=== PATIENT | female | born 1955 | race Caucasian/White ===

== ENCOUNTER 2017-07-06 15:52 | Emergency (ER) | payer OTHER ==
[~2017-07-06] VITALS: Ht 160 cm; Wt 124.7 kg
[~2017-07-06 15:52] MED LIST: ASPIRIN ADULT L81 M1 PO; CARDIZEM CD240 MG PO; CIPRO250 MG PO; LOPRESSOR50 MG PO; METFORMIN500 MG PO; MULTI VITAMINS1 TAB PO; NORVASC10 MG PO; PRADAXA150 MG PO; TRILEPTAL600 MG PO; VICODIN 5-3001 EACH PO; ZESTRIL,PRINIVI10 MG PO
== END 2017-07-06 18:20 | disposition home or self-care (01) ==
LOC: ED 15:52
DX: S13.9XXA Sprain of joints and ligaments of unspecified parts of neck, initial encounter (principal); Y93.89 Activity, other specified; Y92.89 Other specified places as the place of occurrence of the external cause; Y99.8 Other external cause status; V89.2XXA Person injured in unspecified motor-vehicle accident, traffic, initial encounter; I10 Essential (primary) hypertension

== ENCOUNTER → 2018-02-22 | Outpatient (CLI) | payer OTHER ==
[2018-02-23 10:06] LABS: HEPATITIS B SURFACE AG Negative (Negative); HEPATITIS C VIRUS ANTIBODY <0.1 s/co (0.0-0.9)
== END | disposition home or self-care (01) ==
LOC: LAB 00:17 → US 09:00
PROVIDERS: Internal Medicine
DX: K76.0 Fatty (change of) liver, not elsewhere classified (principal); K82.9 Disease of gallbladder, unspecified

== ENCOUNTER → 2018-09-25 | Outpatient (CLI) | payer OTHER | END | disposition home or self-care (01) | LOC: MAMMO 08:00 | DX: Z12.31 Encounter for screening mammogram for malignant neoplasm of breast (principal) ==

== ENCOUNTER → 2019-05-20 | Outpatient (CLI) | payer OTHER | END | disposition home or self-care (01) | LOC: US 09:29 | DX: K76.0 Fatty (change of) liver, not elsewhere classified (principal) ==

== ENCOUNTER 2019-08-17 15:43 | Inpatient (IN) | payer OTHER ==
[~2019-08-17] VITALS: Ht 157.5 cm; Wt 120.3 kg
[~2019-08-17 15:43] MED LIST changes: -ZESTRIL,PRINIVI10 MG PO; +ZESTRIL20 MG PO
[2019-08-17] MEDS ORDERED: DILTIAZEM 24HR360 MG PO (15:57)
[2019-08-17] MEDS ORDERED: LASIX40 MG PO (15:57)
[2019-08-17 16:00] VITALS: BP 137/77
[2019-08-17] MEDS ORDERED: KLOR-CON 1010 ME1 PO (16:00)
--- NOTE | 2019-08-17 16:00 | NUR ---
A 64, admitted to , under the services of JESSICA Rob MD with a diagnosis of AF W/ RVR. Chief complaint is DIRECT ADMIT FROM OFFICE. Patient arrived via from [place]. Monitor applied. Initial assessment completed. Vital signs taken and recorded. JESSICA ROB MD notified of admission to the unit. Orders received. See assessment for past medical history, medications and allergies. Patient and/or family oriented to unit. [facility] visitation policy reviewed. Clothing/patient valuable form completed. MARSHAL GUERRERO
[2019-08-17] MEDS ORDERED: LIPITOR10 MG PO (16:03)
[2019-08-17] MEDS ORDERED: VITAMIN D-32000 UNI1 PO (16:03)
--- NOTE | 2019-08-17 16:54 | NUR ---
NEW IV STARTED IN LEFT AC 22 VENUS ON FIRST ATTEMPT, GOOD BLOOD RETURN AND FLUSHED WITHOUT DIFFICULTY, NEW IV STARTED IN RIGHT FORARM, 22 VENUS ON FIRST ATTEMPT, GOOD BLOOD RETURN AND FLUSHED WITHOUT DIFFUCLTY
[2019-08-17 17:09] LABS: BASO % 0.3 % (0.0-1.0); EOS # 0.2 10*3/uL (0.0-0.4); EOS % 2.5 % (1.0-4.0); HEMATOCRIT 41.9 % (37.0-47.0); HEMOGLOBIN 11.5 g/dl (12.0-16.0); LYMPH # 0.8 10*3/uL (1.3-4.4); LYMPH % 9.2 % (27.0-41.0); MEAN CELL VOLUME 83.8 fl (81.0-99.0); MEAN CORPUSCULAR HGB CONC 27.4 g/dl (33.0-37.0); MEAN PLATELET VOLUME 9.9 fl (9.6-12.3); MONO # 0.9 10*3/uL (0.1-1.0); MONO % 10.9 % (3.0-9.0); NEUT # 6.6 10*3/uL (2.3-7.9); NEUT % 76.6 % (47.0-73.0); PLATELET COUNT AUTOMATED 330 10*3/uL (130-400); RED CELL DISTRI WIDTH 17.4 % (0-14.5); WHITE BLOOD COUNT 8.6 10*3/uL (4.8-10.8)
[2019-08-17 17:33] LABS: ALKALINE PHOSPHATASE 137 U/L (45-117); BUN 28 mg/dl (7-24); CHLORIDE 105 mmol/L (98-107); CREATININE 0.93 mg/dL (0.55-1.02); POTASSIUM 4.2 mmol/L (3.5-5.1); SGOT/AST 30 IU/L (3-35); SGPT/ALT 36 U/L (12-78); SODIUM 143 mmol/L (136-145); TOTAL PROTEIN 6.8 gm/dL (6.4-8.2)
[2019-08-17 17:40] LABS: TROPONIN I < 0.015 ng/ml (<0.045)
[2019-08-17 17:43] VITALS: BP 114/110
--- NOTE | 2019-08-17 17:43 | NUR ---
CARDIZEM DRIP STARTED
--- NOTE | 2019-08-17 17:56 | NUR ---
DR FISHER NOTIFIED OF CONSULT
[2019-08-17 18:00] VITALS: BP 140/94
[2019-08-17 18:30] VITALS: BP 140/84
[2019-08-17 20:00] VITALS: BP 152/98
--- NOTE | 2019-08-17 20:00 | NUR ---
AAOX3 SITTING UP IN BED. PT. IS AUDIBLY WHEEZY; PT. TOOK OFF 02. INFORMED PATIENT THAT SHE NEEDS TO KEEP HER OXYGEN BACK ON. 02 SATS ARE IN THE 80'S WITHOUT 0XYGEN. 02 PLACED BACK ON PATIENT & SATS ARE 93-94%. CALL LIGHT WITHIN REACH. CARDIZEM GTT ALSO INFUSING WITHOUT DIFFICULTY; SITE ASYMPTOMATIC.
[2019-08-17 22:00] VITALS: BP 143/92
--- NOTE | 2019-08-17 22:00 | NUR ---
SOAP GRINDER CALLED MULTIPLE TIMES PERTAINING TO PT'S LEADS. EVERY TIME PATIENT GETS UP TO THE BEDSIDE COMMODE HER LEADS COME OFF. NEW LEADS PUT BACK ON.
[2019-08-18] VITALS (8 sets, daily range): BP systolic 131–150; BP diastolic 68–95
--- NOTE | 2019-08-18 | NUR ---
PT. VERY CONFUSED & STATING THAT HER NAME IS "PAT" AND THAT SHE IS IN [place]. ALSO STATES "COME WITH ME YOU'RE GOING TO SEE WHATS GOING ON." MULTIPLE ATTEMPTS TO REORIENT PATIENT AT THIS TIME ARE FUTILE.
--- NOTE | 2019-08-18 00:05 | NUR ---
CALLED DR. EVANS PERTAINING TO COMING UP TO THE FLOOR TO LOOK AT PT.
[2019-08-18 00:20] LABS: ABG HCO3 35.1 mmol/l (22-26); ABG O2 SATURATION 85.9 % (95-97); ARTERIAL BLOOD GAS PH 7.306 (7.35-7.45); ARTERIAL BLOOD GAS PO2 56.9 mmHg (80-90)
[2019-08-18 00:22] LABS: ARTERIAL BLOOD GAS PCO2 72.5 mmHg (35-45)
--- NOTE | 2019-08-18 00:30 | NUR ---
Pt placed on BiPap 16/6 and FiO2 40%. Alarms on and audible.
--- NOTE | 2019-08-18 00:30 | NUR ---
CASPER'S DRAWN PER Juan HAYS.
[2019-08-18 00:52] LABS: ABG BASE EXCESS 6.8 mmol/L (-2.0-2.0); ABG HCO3 35.3 mmol/l (22-26); ABG O2 SATURATION 94.7 % (95-97); ARTERIAL BLOOD GAS PH 7.297 (7.35-7.45); ARTERIAL BLOOD GAS PO2 84.8 mmHg (80-90)
[2019-08-18 00:54] LABS: ARTERIAL BLOOD GAS PCO2 73.8 mmHg (35-45)
--- NOTE | 2019-08-18 01:38 | NUR ---
RESPIRATORY HERE TO PUT BIPAP ON PATIENT.
--- NOTE | 2019-08-18 01:45 | NUR ---
Nurse informed me that pt does not want to wear the BiPap. She does not like to be claustrophobic. Pt will not wear the BiPap even though we showed her multiple masks. Nurse aware.
--- NOTE | 2019-08-18 02:00 | NUR ---
DR. EVANS HERE TO SEE PT. & DISCUSS THE IMPORTANCE OF WEARING THE BIPAP. PT. IS REFUSING TO WEAR THE BIPAP. PATIENT ALSO KEEPS TELLING DR. EVANS THAT HE IS NOT THE DR. EVANS THAT SHE SAW EARLIER & THAT SHE WANTS TO SEE HIS GRINDING ROOM SUPERVISOR'S LICENSE.
--- NOTE | 2019-08-18 03:00 | NUR ---
DR. PEREZ HERE TO SPEAK TO PATIENT REGARDING WEARING THE BIPAP. PT. REMAINS UNCOOPERATIVE & ARGUMENTATIVE AT THIS TIME. WILL CONTINUE TO MONITOR. CALL LIGHT WITHIN REACH.
--- NOTE | 2019-08-18 03:13 | NUR ---
MEDICATED WITH GEODON.
[2019-08-18 03:48] LABS: BILIRUBIN NEGATIVE (NEGATIVE); BLOOD NEGATIVE (NEGATIVE); CLARITY SL CLOUDY (CLEAR); COLOR YELLOW (YELLOW); GLUCOSE NEGATIVE (NEGATIVE); KETONE NEGATIVE (NEGATIVE); LEUKO ESTERASE NEGATIVE (NEGATIVE); NITRITE NEGATIVE (NEGATIVE); SPECIFIC GRAVITY 1.025 (1.005-1.030); UROBILINOGEN 0.2 E.U./dl (0.2-1.0)
--- NOTE | 2019-08-18 03:54 | NUR ---
PT'S DAUGHTER HERE & SPOKE TO MOTHER ABOUT WEARING THE BIPAP. PATIENT AGREES TO WEAR THE BIPAP.
[2019-08-18 03:55] LABS: HYALINE CAST 25-30
[2019-08-18 03:56] LABS: EPITHELIAL CELLS 35-40
--- NOTE | 2019-08-18 04:00 | NUR ---
RESPIRATORY HERE TO PUT PATIENT ON THE BIPAP.
--- NOTE | 2019-08-18 06:00 | NUR ---
RESTING IN BED WITH HOB ELEVATED. BIPAP INTACT. PULSE OX 100%. CALL LIGHT WITHIN REACH. DAUGHTER PRESENT IN ROOM.
[2019-08-18 06:35] LABS: HEMATOCRIT 41.1 % (37.0-47.0); HEMOGLOBIN 11.3 g/dl (12.0-16.0); MEAN CELL VOLUME 84.6 fl (81.0-99.0); MEAN CORPUSCULAR HGB 23.3 pg (27.0-31.0); MEAN CORPUSCULAR HGB CONC 27.5 g/dl (33.0-37.0); MEAN PLATELET VOLUME 10.4 fl (9.6-12.3); PLATELET COUNT AUTOMATED 306 10*3/uL (130-400); RED BLOOD COUNT 4.86 10*6/uL (4.10-5.10); RED CELL DISTRI WIDTH 17.1 % (0-14.5); WHITE BLOOD COUNT 7.4 10*3/uL (4.8-10.8)
[2019-08-18 06:47] LABS: BUN 27 mg/dl (7-24); CHLORIDE 103 mmol/L (98-107); CHOLESTEROL 185 mg/dL (<200); CREATININE 0.96 mg/dL (0.55-1.02); POTASSIUM 4.7 mmol/L (3.5-5.1); SODIUM 142 mmol/L (136-145); TRIGLYCERIDES 104 mg/dl (<150); VLDL CHOLESTEROL 21 mg/dL (6-40)
[2019-08-18 06:56] LABS: FREE T4 0.84 ng/dl (0.76-1.46); HDL CHOLESTEROL 53 mg/dl (40-60); LDL CHOLESTEROL 111 mg/dL (9-159)
[2019-08-18 07:27] LABS: OVALOCYTES FEW; PLATELET SUFFICIENCY NORMAL (NORMAL); POLYCHROMASIA SLIGHT; TOTAL CELLS COUNTED 100 #CELLS
[2019-08-18 07:28] LABS: TARGET CELLS FEW
--- NOTE | 2019-08-18 09:00 | NUR ---
Vice President Network Development in to talk to patient. Patient states lives at home with her daughter, Roberta, and her grandson, Alexei. There are 4 steps in the home. Physician: Dr. Bal Bowens [facility] Home health services: none Patient's level of ADLs: INDEPENDENT Patient has working utilities: yes DME: none Follow-up physician's appointment after d/c: she prefers to make her own follow up appt after discharge Does patient want to access PORTAL?: no Discharge plan discussed with patient. She lives at home with her family. She is independent in her ADLs and ambulation. Discussed home health care services and she denies any home needs at this time. When medically stable she will be discharged to home. Her daughter will provide transportation on discharge. Chest x-ray showed pulmonary vascular congestion, treated with Lasix. Bronchitis being treated with rocephin, zithromax, solumedrol, and duonebs. She is on a cardizem drip and Dr. Interiano is following. JOB YA
[2019-08-18 14:00] LABS: ABG BASE EXCESS 5.4 mmol/L (-2.0-2.0); ABG HCO3 31.5 mmol/l (22-26); ABG O2 SATURATION 98.4 % (95-97); ARTERIAL BLOOD GAS PCO2 54.7 mmHg (35-45); ARTERIAL BLOOD GAS PH 7.377 (7.35-7.45); ARTERIAL BLOOD GAS PO2 99.1 mmHg (80-90)
[2019-08-18 15:32] LABS: IRON 22 ug/dL (50-170); TOTAL IRON BINDING CAPACITY 490 ug/dl (250-450)
[2019-08-18 16:12] LABS: FERRITIN 19.7 ng/mL (10.0-291.0)
[2019-08-18] MEDS ORDERED: KENALOG 0.1%80 GM T (21:44)
--- NOTE | 2019-08-18 23:17 | NUR ---
PT. REFUSED BIPAP AT THIS TIME. IS HAVING COLONOSCOPY IN THE MORNING.
--- NOTE | 2019-08-18 23:23 | NUR ---
CARDIZEM DRIP DECREASED TO 10CC/HR FOR HR 85-95. WILL CONTINUE TO MONITOR.
[2019-08-19] VITALS (9 sets, daily range): BP systolic 107–140; BP diastolic 69–90
--- NOTE | 2019-08-19 | NUR ---
PATIENT REMAINS ON CARDIZEM 10CC/HR, HR 90-100 PER CM.
--- NOTE | 2019-08-19 01:00 | NUR ---
PATIENT REMAINS ON 10CC/HR OF CARDIZEM. HR 90'S ON CM.
--- NOTE | 2019-08-19 01:09 | NUR ---
24 HR chart check completed.
--- NOTE | 2019-08-19 02:27 | NUR ---
RECEIVED CALL FROM [email or web address] THAT PATIENT IS OFF MONITOR.AFTER ENTERING ROOM, PATIENT STANDING AT SIDE OF BED, WITH GOWN AND HEART MONITOR OFF. PATIENT HAS RIPPED OUT BOTH IVS. PATIENT STATES SHE DID NOT KNOW WHAT WAS GOING ON AND WAS TRYING TO GET UP TO GO TO THE BATHROOM. HEART MONITOR REAPPLIED, HR 100-110. PATIENT REDRESSED AND NEW IVS PLACED. CARDIZEM DRIP RESTARTED AT 10CC/HR. CALL LIGHT INSTRUCTIONS GIVEN TO PATIENT, PATIENT STATES SHE UNDERSTANDS. BED ALARM ON. WILL MONITOR.
--- NOTE | 2019-08-19 03:00 | NUR ---
PATIENT PLACED ON BIPAP ORDERED. WILL MONITOR.
--- NOTE | 2019-08-19 04:00 | NUR ---
PATIENT RESTING WITH EYES CLOSED. RESPIRATIONS EASY AND UNLABORED ON BIPAP. CARDIZEM DRIP REMAINS AT 10CC/HR FOR HR 90'S-110'S ON CM. CALL LIGHT WITHIN REACH. WILL MONITOR.
--- NOTE | 2019-08-19 06:05 | NUR ---
FLEET ENEMA GIVEN AT THIS TIME. STILL NO BOWEL MOVEMENT. WILL CONTINUE TO MONITOR.
--- NOTE | 2019-08-19 06:15 | NUR ---
PATIENT TAKEN OFF BIPAP AND PLACED ON 2LNC.
--- NOTE | 2019-08-19 06:30 | NUR ---
PATIENT HAS MOMENTS OF CONFUSION. BED ALARM REMAINS ON. WILL MONITOR.
[2019-08-19 07:01] LABS: BASO % 0.2 % (0.0-1.0); HEMATOCRIT 42.1 % (37.0-47.0); HEMOGLOBIN 11.4 g/dl (12.0-16.0); LYMPH # 0.6 10*3/uL (1.3-4.4); LYMPH % 4.1 % (27.0-41.0); MEAN CELL VOLUME 85.9 fl (81.0-99.0); MEAN CORPUSCULAR HGB 23.3 pg (27.0-31.0); MEAN CORPUSCULAR HGB CONC 27.1 g/dl (33.0-37.0); MEAN PLATELET VOLUME 10.9 fl (9.6-12.3); MONO # 0.8 10*3/uL (0.1-1.0); MONO % 6.2 % (3.0-9.0); NEUT # 11.8 10*3/uL (2.3-7.9); NEUT % 88.9 % (47.0-73.0); PLATELET COUNT AUTOMATED 347 10*3/uL (130-400); RED CELL DISTRI WIDTH 17.3 % (0-14.5); WHITE BLOOD COUNT 13.3 10*3/uL (4.8-10.8)
[2019-08-19 08:18] LABS: ALBUMIN 3.2 gm/dl (3.1-4.5); ALKALINE PHOSPHATASE 137 U/L (45-117); BUN 31 mg/dl (7-24); CHLORIDE 104 mmol/L (98-107); CREATININE 0.89 mg/dL (0.55-1.02); SGOT/AST 32 IU/L (3-35); SGPT/ALT 40 U/L (12-78); SODIUM 140 mmol/L (136-145); TOTAL PROTEIN 6.9 gm/dL (6.4-8.2)
--- NOTE | 2019-08-19 09:00 | NUR ---
Core Finisher in to see patient. No new needs or request at this time. She denies any home needs. When medically stable she will be discharged to home. Chest x-ray showed pulmonary vascular congestion, treated with Lasix. Bronchitis being treated with rocephin, zithromax, solumedrol, and duonebs. She is on a cardizem drip and Dr. Interiano is following.
--- NOTE | 2019-08-19 09:01 | NUR ---
CAMERONHALLEYORQUIDEA [id number] Please refer to the physician's history and physical for past medical history, comorbid conditions, and allergies. Diagnosis: A FIB WITH RVR SOB Terell Score: 20,LOW OR NO RISK WOUND DESCRIPTIONS: This nurse was asked to evaluate patients buttocks. Upon assessment several partial thickness areas noted at time of assessment. Patient stated that [facility] [place] and diagnosis her with psorasis and was put on triamincolone and she stated she used it for a couple of days and then it cleared it up. She stated she only uses this when she has a flare up. Surface the patient is resting on: Position Pro SKIN PREVENTION RECOMMENDATION: 1. Pressure redistribution support surface as appropriate 2. Elevate heels 3. Remove boots/TEDS every shift and reapply 4. Head of bed 30 degrees as tolerated 5. Assess nutrition and hydration 6. Manage moisture 7. Avoid the use of containment devices while in bed 8. Use absorptive products on surfaces limit layers of linens on bed 9. Turn and reposition every 1-2 hours in bed and every 1 hour in chair as tolerated 10. Weight shifts every 15 minutes while up in chair 11. Offloading with pillows or device to keep heels elevated off bed 12. Monitor skin at least every shift 13. Inspect under medical devices twice a day WOUND TREATMENT RECOMMENDATIONS: Kenalog 0.1% TID to affected areas.
--- NOTE | 2019-08-19 09:13 | NUR ---
PT REMAINS ON CARDIZEM DRIP, EGD/COLO SCHEDULED FOR TODAY. NOTIFIED DR UMANZOR AND DR LEMA AND THEY BOTH SAID TO HOLD THE EGD/COLO UNTIL SEEN BY DR FISHER TODAY.
--- NOTE | 2019-08-19 09:20 | NUR ---
HR 120'S CARDIZEM INCREASED TO 15MG/HR
--- NOTE | 2019-08-19 13:34 | NUR ---
EGD/COLO CANCELLED FOR TODAY DUE TO HR AFTER SPEAKING WITH DR FISHER. PER DR LEMA RESCHEDULE FOR SATURDAY IF CLEARED.
[2019-08-20] VITALS (11 sets, daily range): BP systolic 130–146; BP diastolic 57–88
--- NOTE | 2019-08-20 | NUR ---
PATIENT RESTING WITH EYES CLOSED. RESPIRATIONS EASY AND UNLABORED ON BIPAP. BED ALARM ON AND CALL LIGHT WITHIN REACH. CARDIZEM DRIP REMAINS AT 15CC/HR FOR HER 90'S-110'S. WILL MONITOR.
--- NOTE | 2019-08-20 02:00 | NUR ---
PATIENT RESTING WITH EYES CLOSED. RESPIRATIONS EASY AND UNLABORED ON BIPAP. BED ALARM ON AND CALL LIGHT WITHIN REACH. CARDIZEM DRIP DECREASED TO 10CC/HR FOR HR 79-90 ON CM. WILL MONITOR.
--- NOTE | 2019-08-20 03:45 | NUR ---
PATIENT TAKEN OFF BIPAP PER REQUEST. PLACED ON 3LNC. WILL MONITOR.
--- NOTE | 2019-08-20 04:07 | NUR ---
24 HR chart check completed.
--- NOTE | 2019-08-20 04:25 | NUR ---
PATIENT HR MAINTAINING 70'S-80'S ON CM. CARDIZEM DRIP DECREASED TO 5MG/HR. WILL MONITOR.
--- NOTE | 2019-08-20 06:00 | NUR ---
PATIENT AWAKE TO TAKE MORNING MEDICATIONS. UP TO BATHROOM WITH NO COMPLICATIONS. STEADY GAIT NOTED. HR 100-110 ON CM WITH EXERTION. WILL MONITOR.
[2019-08-20 06:38] LABS: BASO % 0.1 % (0.0-1.0); HEMOGLOBIN 10.8 g/dl (12.0-16.0); LYMPH # 0.4 10*3/uL (1.3-4.4); LYMPH % 3.6 % (27.0-41.0); MEAN CELL VOLUME 84.2 fl (81.0-99.0); MEAN CORPUSCULAR HGB 22.7 pg (27.0-31.0); MEAN PLATELET VOLUME 10.4 fl (9.6-12.3); MONO # 0.7 10*3/uL (0.1-1.0); MONO % 5.9 % (3.0-9.0); NEUT # 10.3 10*3/uL (2.3-7.9); NEUT % 89.7 % (47.0-73.0); NUCLEATED RED BLOOD CELL 0.2 % (0.0-0.0); PLATELET COUNT AUTOMATED 332 10*3/uL (130-400); RED BLOOD COUNT 4.75 10*6/uL (4.10-5.10); RED CELL DISTRI WIDTH 17.1 % (0-14.5); WHITE BLOOD COUNT 11.5 10*3/uL (4.8-10.8)
[2019-08-20 06:47] LABS: BUN 23 mg/dl (7-24); CHLORIDE 104 mmol/L (98-107); CREATININE 0.77 mg/dL (0.55-1.02); POTASSIUM 4.5 mmol/L (3.5-5.1); SODIUM 140 mmol/L (136-145)
--- NOTE | 2019-08-20 08:30 | NUR ---
Discussed surveillance system monitor continuation with Dr. Bowens. New order received to continue as patient is on a cardizem drip and receiving cardiac medications with an elevated HR.
--- NOTE | 2019-08-20 10:30 | NUR ---
Jointer Submarine Cable in to see patient. No new needs or request at this time. She denies any home needs. When medically stable she will be discharged to home. Chest x-ray showed pulmonary vascular congestion, treated with Lasix. Bronchitis being treated with rocephin, zithromax, solumedrol, and duonebs. She is on a cardizem drip, increased metoprolol, and gave a one time dose of digoxin. Dr. Ray following. Bipap discontinued as CO2 level is down. She is scheduled for an EGD/colo on Saturday.
--- NOTE | 2019-08-20 18:00 | NUR ---
PT PULLED BOTH IV SITES OUT WHILE CLEANING UP AT BATHROOM SINK. CARDIZEM DRIP STOPPED AT THIS TIME.
--- NOTE | 2019-08-20 18:45 | NUR ---
CALLED ABOUT PT ROLANDA LAMB. ORDERED TO LEAVE [place] FOR NOW, WILL CHECK ON IT LATER THIS EVENING.
--- NOTE | 2019-08-20 19:00 | NUR ---
ASSUMED CARE FOR THIS PT AT THIS TIME. PT AWAKE IN BED. NO C/O VOICED. PT STATES HER STOOL IS LIGHT BROWN LIQUID. COLO PREP CONTINUES. CALL LIGHT IN REACH.
--- NOTE | 2019-08-20 19:20 | NUR ---
Patient does not want to wear NIV this evening due to frequent of bowel movements from her colon prep. States that "I love wearing it, but just don't think it's a good idea tonight."
--- NOTE | 2019-08-20 21:00 | NUR ---
PT ATTEMPTED TO GO TO BR UNASSISTED. PT DISCONNECTED IV TUBING. ACCUCATH REMAINS INTACT. PT REMINDED TO CALL FOR ASSISTANCE WHEN GETTING OOB. BED ALARM TURNED ON. IV FLUSHED AND RECONNECTED AND INFUSING W/OUT DIFF.
[2019-08-21] VITALS (13 sets, daily range): BP systolic 129–182; BP diastolic 73–100
--- NOTE | 2019-08-21 03:03 | NUR ---
PATIENT UP TO BATHROOM MULTIPLE TIMES TONIGHT. HR IN 90'S. CARDIZEM DRIP STILL AT 5. PATIENT TOLERATING WELL. NO COMPLAINTS AT THIS TIME.
--- NOTE | 2019-08-21 04:25 | NUR ---
Patient resting quietly with no c/o discomfort. Respirations easy and regular. Vital signs stable. No overt distress. MAYKEL CAMARENA
[2019-08-21 06:04] LABS: HEMATOCRIT 43.1 % (37.0-47.0); HEMOGLOBIN 11.7 g/dl (12.0-16.0); MEAN CELL VOLUME 83.7 fl (81.0-99.0); MEAN CORPUSCULAR HGB 22.7 pg (27.0-31.0); MEAN CORPUSCULAR HGB CONC 27.1 g/dl (33.0-37.0); MEAN PLATELET VOLUME 10.3 fl (9.6-12.3); NUCLEATED RED BLOOD CELL 0.1 10*3/uL (0.0-0.0); NUCLEATED RED BLOOD CELL 0.5 % (0.0-0.0); PLATELET COUNT AUTOMATED 354 10*3/uL (130-400); RED BLOOD COUNT 5.15 10*6/uL (4.10-5.10)
[2019-08-21 06:19] LABS: BUN 16 mg/dl (7-24); CHLORIDE 99 mmol/L (98-107); CREATININE 0.78 mg/dL (0.55-1.02); POTASSIUM 4.5 mmol/L (3.5-5.1); SODIUM 137 mmol/L (136-145)
[2019-08-21 07:32] LABS: PLATELET SUFFICIENCY NORMAL (NORMAL); TOTAL CELLS COUNTED 100 #CELLS
[2019-08-21 07:33] LABS: OVALOCYTES FEW; POLYCHROMASIA SLIGHT
--- NOTE | 2019-08-21 08:17 | NUR ---
YELLOW BMs STILL. GIVEN TAP WATER ENEMA PER POLICY. TOLERATED/RETAINING WELL. WILL RECHECK.
--- NOTE | 2019-08-21 09:00 | NUR ---
Sock Lining Stitcher in to see patient. No new needs or request at this time. She denies any home needs. When medically stable she will be discharged to home. EGD/colo scheduled for today. Remains on cardizem drip. Tachycardia. Bipap at .
--- NOTE | 2019-08-21 10:59 | NUR ---
CALLED TO CLAIRIFY THAT HE STILL WANTED CARDIZREM DRIP. STATES HE DISCONTINUED THIS 2 DAYS AGO AND THAT TOPROL AND PO CARDIZEM WERE ORDERED. OBATINED NEW ORDERS. SEE MAR. ALSO ORDERED TO DISCONTINUE CARDIEM 4HRS AFTER FIRST PO DOSE.
--- NOTE | 2019-08-21 11:32 | NUR ---
RUNNING CLEAR FOLLOWING TAP WATER ENEMA. WILL CONTINUE TO MONITOR. CALL LIGHT WITHIN REACH.
--- NOTE | 2019-08-21 13:32 | NUR ---
OFF FLOOR FOR EGD/COLO.
--- NOTE | 2019-08-21 18:42 | NUR ---
C/O SHOULDER PAIN RIGHT WORSE THAN LEFT. TYLENOL GIVEN, K-PAD ORDERED PER [facility] MEASURE. APPLIED TO RT ARM. WILL MONITOR.
--- NOTE | 2019-08-21 19:45 | NUR ---
PER PT, TYLENOL AND K-PAD WERE EFFECTIVE FOR ARM STIFFNESS/PAIN.
--- NOTE | 2019-08-21 21:55 | NUR ---
PATIENT'S HEART RATE JUMPING FROM LOW 100'S TO HIGH 130'S. NOTIFIED THE RESIDENT. HE STATED HE WOULD CALL BACK.
--- NOTE | 2019-08-21 23:00 | NUR ---
PATIENT REFUSING BIPAP
[2019-08-22] VITALS (8 sets, daily range): BP systolic 117–147; BP diastolic 69–83
[2019-08-22 07:10] LABS: BASO % 0.2 % (0.0-1.0); EOS % 0.1 % (1.0-4.0); HEMOGLOBIN 11.7 g/dl (12.0-16.0); LYMPH # 0.4 10*3/uL (1.3-4.4); LYMPH % 3.5 % (27.0-41.0); MEAN CELL VOLUME 84.3 fl (81.0-99.0); MEAN CORPUSCULAR HGB 22.9 pg (27.0-31.0); MEAN CORPUSCULAR HGB CONC 27.2 g/dl (33.0-37.0); MONO # 0.7 10*3/uL (0.1-1.0); MONO % 6.5 % (3.0-9.0); NEUT # 9.7 10*3/uL (2.3-7.9); NEUT % 87.2 % (47.0-73.0); NUCLEATED RED BLOOD CELL 0.3 % (0.0-0.0); PLATELET COUNT AUTOMATED 319 10*3/uL (130-400); RED CELL DISTRI WIDTH 17.1 % (0-14.5); WHITE BLOOD COUNT 11.2 10*3/uL (4.8-10.8)
[2019-08-22 07:25] LABS: BUN 24 mg/dl (7-24); CHLORIDE 105 mmol/L (98-107); CREATININE 0.87 mg/dL (0.55-1.02); POTASSIUM 4.4 mmol/L (3.5-5.1); SODIUM 141 mmol/L (136-145)
--- NOTE | 2019-08-22 08:41 | NUR ---
CARDIZEM DRIP TURNED OFF AFTER LOSING IV ACCESS. PO CARDIZEM GIVEN ORDERED.
--- NOTE | 2019-08-22 20:15 | NUR ---
Chart check complete.
--- NOTE | 2019-08-22 20:33 | NUR ---
PATIENT RESTING IN BED WITH EASY AND REGULAR RESPERS. O2 AND HURL SHAKER LEADS PLACED BACK ON PATIENT AND IMPORTANCE EXPLAINED. ASSESSMENT IS COMPLETE WITH NO C/O OR S/S OF DISTRESS NOTED. BED IS LOW, LOCKED, ALARMED, AND CALL LIGHT IS WITHIN REACH. WILL CONTINUE TO MONITOR SEE SHIFT ASSESSMENT.
--- NOTE | 2019-08-22 23:15 | NUR ---
Pt is refusing the BiPap tonight.
[2019-08-23] VITALS: BP 118/59
[2019-08-23 07:03] LABS: BUN 22 mg/dl (7-24); CHLORIDE 105 mmol/L (98-107); POTASSIUM 4.3 mmol/L (3.5-5.1); SODIUM 145 mmol/L (136-145)
[2019-08-23 07:05] LABS: CREATININE 0.81 mg/dL (0.55-1.02)
[2019-08-23 08:00] VITALS: BP 160/90
[2019-08-23 12:00] VITALS: BP 154/89
[2019-08-23 16:00] VITALS: BP 142/77
--- NOTE | 2019-08-23 19:01 | NUR ---
HR [address] GIL AND NEW ORDER RECEIVED TO RESTART CARDIZEM DRIP WITH A BOLUS OF 10MG AND THEN 5MG/HR CONT.
[2019-08-23 20:00] VITALS: BP 142/72; BP 149/99
--- NOTE | 2019-08-23 20:00 | NUR ---
CARDIZEM DRIP MAINTANED AT 5MG/H.
--- NOTE | 2019-08-23 22:00 | NUR ---
CARDIZEM DRIP INCREASED TO 10MG/H DUE TO HEART RATE RUNNING IN THE 120'S.
--- NOTE | 2019-08-23 22:59 | NUR ---
CARDIZEM DRIP MAINTAINED AT 10MG/H. HEART RATE CONSISTENTLY IN THE HIGH 90'S.
--- NOTE | 2019-08-23 23:20 | NUR ---
PT. REFUSED BIPAP AT THIS TIME.
[2019-08-24] VITALS: BP 126/69
--- NOTE | 2019-08-24 00:55 | NUR ---
24 HR chart check completed.
--- NOTE | 2019-08-24 03:15 | NUR ---
Patient sleeping. Respirations relaxed and easy. Siderails up . [place] on. No signs or symptoms of distress noted. 3L oxygen via nasal cannula intact. Cardizem running at 10mg/H. Heart rate in the 90's per patient monitor. Call light within reach. LEXI GLASS
[2019-08-24 07:09] LABS: BUN 20 mg/dl (7-24); CHLORIDE 101 mmol/L (98-107); CREATININE 0.66 mg/dL (0.55-1.02); POTASSIUM 4.3 mmol/L (3.5-5.1); SODIUM 140 mmol/L (136-145)
[2019-08-24 08:01] VITALS: BP 132/88
--- NOTE | 2019-08-24 09:00 | NUR ---
Gasket Maker in to see patient. No new needs or request at this time. She denies any home needs. When medically stable she will be discharged to home. Tachycardia. Lasix 60 mg IV BID. Possible discharge today.
[2019-08-24 12:00] VITALS: BP 137/79
--- NOTE | 2019-08-24 15:00 | NUR ---
A 64, admitted to , under the services of JESSICA Rob MD with a diagnosis of HYPOKALEMIA. Chief complaint is WEAKNESS. Patient arrived via stretcher from [place]. Monitor applied. Initial assessment completed. Vital signs taken and recorded. JESSICA ROB MD notified of admission to the unit. Orders received. See assessment for past medical history, medications and allergies. Patient and/or family oriented to unit. [address] visitation policy reviewed. Clothing/patient valuable form completed. PAPI TARIQ
[2019-08-24 16:00] VITALS: BP 103/56
--- NOTE | 2019-08-24 16:00 | NUR ---
Face to face encounter with Dr. Vu physician notified med rec is updated.
--- NOTE | 2019-08-24 16:34 | NUR ---
Notified resident that patient has edmund blood during urination. Physician to follow up at bedside.
--- NOTE | 2019-08-24 19:30 | NUR ---
PT SITTING UP AT THE SIDE OF THE BED. VOICES NO CONCERNS AT THIS TIME. NO S/S OF DISTRESS NOTED. 3L OXYGEN VIA NASAL CANNULA INTACT. CALL LIGHT WITHIN REACH. CARDIZEM DRIP MAINTAINED AT 10 MG/H. HEART RATE IN THE 90'S AT THIS TIME.
[2019-08-24 20:00] VITALS: BP 141/95
[2019-08-25] VITALS (9 sets, daily range): BP systolic 145–178; BP diastolic 79–104
--- NOTE | 2019-08-25 01:34 | NUR ---
Patient resting quietly with no c/o or s/s of discomfort. Respirations easy and regular. Vital signs stable. No overt distress. 3L oxygen via nasal cannula intact. Call light within reach. QUAN,LEXI
--- NOTE | 2019-08-25 03:07 | NUR ---
24 HR chart check completed.
--- NOTE | 2019-08-25 04:20 | NUR ---
Patient sleeping. Respirations relaxed and easy. Siderails up . [place] on. 3L oxygen via nasal cannula intact. Call light within reach. HISSOM,LEXI
--- NOTE | 2019-08-25 06:44 | NUR ---
SURGERY HERE TO TRANSPORT PT TO OR FOR FANNIE AND CARDIOVERSION
[2019-08-25 06:56] LABS: CHLORIDE 99 mmol/L (98-107); POTASSIUM 4.3 mmol/L (3.5-5.1); SODIUM 138 mmol/L (136-145)
[2019-08-25 07:09] LABS: BUN 32 mg/dl (7-24)
[2019-08-25 07:27] LABS: BASO % 0.2 % (0.0-1.0); HEMATOCRIT 45.7 % (37.0-47.0); LYMPH # 0.4 10*3/uL (1.3-4.4); MEAN CELL VOLUME 81.9 fl (81.0-99.0); MEAN CORPUSCULAR HGB 23.3 pg (27.0-31.0); MEAN CORPUSCULAR HGB CONC 28.4 g/dl (33.0-37.0); MEAN PLATELET VOLUME 10.8 fl (9.6-12.3); MONO # 0.7 10*3/uL (0.1-1.0); MONO % 6.3 % (3.0-9.0); NEUT # 10.3 10*3/uL (2.3-7.9); NEUT % 89.5 % (47.0-73.0); PLATELET COUNT AUTOMATED 272 10*3/uL (130-400); RED BLOOD COUNT 5.58 10*6/uL (4.10-5.10); RED CELL DISTRI WIDTH 18.4 % (0-14.5); WHITE BLOOD COUNT 11.5 10*3/uL (4.8-10.8)
--- NOTE | 2019-08-25 08:52 | NUR ---
REPORT RECIEVED FROM OR NURSE VIDAL
--- NOTE | 2019-08-25 09:02 | NUR ---
PT BACK TO FLOOR. VITALS STABLE. NO S/S OR C/O DISTRESS NOTED. PT IS IN VERY GOOD SPIRITS. 3L OXYGEN VIA NASAL CANNULA INTACT. CALL LIGHT WITHIN REACH.
--- NOTE | 2019-08-25 09:27 | NUR ---
SPOKE WITH DR FISHER REGARDING WHICH MORNING MEDICATIONS TO GIVE PT. STATED TO STOP CARDIZEM,CONTINUE PRADEXA AND TRILEPTAL, START LOPRESSOR 50MG PO BID AND GIVE 300MG PO OF RHYTHMOL NOW. ORDERS REPEATED BACK AND VERIFIED.
--- NOTE | 2019-08-25 10:01 | NUR ---
PT COMPLAINS OF 5/10 BACK PAIN. MEDICATED PER ORDER. WILL MONITOR FOR RELIEF. VOICES NO OTHER CONCERNS AT THIS TIME. RESTING IN BED. CALL LIGHT WITHIN REACH.
--- NOTE | 2019-08-25 10:11 | NUR ---
PTS DAUGHTER AT THE BEDSIDE. UPDATED ON PLAN OF CARE PER PT REQUEST. QUESTIONS ANSWERED
--- NOTE | 2019-08-25 23:00 | NUR ---
Pt is refusing to wear her BiPap at this time.
[2019-08-26] VITALS: BP 182/100
--- NOTE | 2019-08-26 00:46 | NUR ---
NOTIFIED OF PT'S BP 182/100 MANUALLY. AWARE 50 MG PO LOPRESSOR & 150 MG PO RHYTHMOL GIVEN AT 2130. ALSO MADE AWARE OF CARDIOVERSION 08/25, CARDIZEM GTT D/Carlos PRIOR TO CARDIOVERSION, AND PT CURRENTLY NSR W/ HR 79 CURRENTLY. WILL REVIEW CHART & PLACE ORDERS NECESSARY.
--- NOTE | 2019-08-26 01:25 | NUR ---
2.5 MG IV VASOTEC ADMINISTERED SLOWLY OVER 5+ MINUTES VIA INFUSION PUMP PER ONE TIME ORDER FOR ELEVATED BP. WILL MONITOR EFFECTIVENESS.
[2019-08-26 02:45] VITALS: BP 158/79
--- NOTE | 2019-08-26 02:49 | NUR ---
NOTIFIED OF REPEAT BP 158/79, DOWN FROM 182/100 FOLLOWING IV VASOTEC ADMINISTRATION. NO NEW ORDERS RECEIVED.
[2019-08-26 06:22] LABS: BUN 30 mg/dl (7-24); CHLORIDE 100 mmol/L (98-107); CREATININE 0.83 mg/dL (0.55-1.02); POTASSIUM 4.1 mmol/L (3.5-5.1); SODIUM 140 mmol/L (136-145)
[2019-08-26 06:29] LABS: BASO % 0.1 % (0.0-1.0); HEMATOCRIT 45.6 % (37.0-47.0); HEMOGLOBIN 12.7 g/dl (12.0-16.0); LYMPH # 0.4 10*3/uL (1.3-4.4); LYMPH % 4.2 % (27.0-41.0); MEAN CELL VOLUME 83.5 fl (81.0-99.0); MEAN CORPUSCULAR HGB 23.3 pg (27.0-31.0); MEAN CORPUSCULAR HGB CONC 27.9 g/dl (33.0-37.0); MEAN PLATELET VOLUME 10.3 fl (9.6-12.3); MONO # 0.8 10*3/uL (0.1-1.0); MONO % 7.6 % (3.0-9.0); NEUT # 8.7 10*3/uL (2.3-7.9); NEUT % 87.3 % (47.0-73.0); PLATELET COUNT AUTOMATED 236 10*3/uL (130-400); RED BLOOD COUNT 5.46 10*6/uL (4.10-5.10); RED CELL DISTRI WIDTH 18.4 % (0-14.5); WHITE BLOOD COUNT 9.9 10*3/uL (4.8-10.8)
[2019-08-26 07:34] VITALS: BP 150/80
[2019-08-26 08:00] VITALS: BP 172/98
--- NOTE | 2019-08-26 08:14 | NUR ---
PT AWAKE AND SITTING UP IN BED NO COMPLAINTS AT THIS TIME. WILL CONTINUE TO MONITOR. KIM LANZA
--- NOTE | 2019-08-26 09:00 | NUR ---
Tire Buffer in to see patient. No new needs or request at this time. She denies any home needs. When medically stable she will be discharged to home. FANNIE with cardioversion yesterday, O2 @ 2L nc with no home O2, lopressor 50 mg BID.
--- NOTE | 2019-08-26 09:18 | NUR ---
OXYGEN DECREASED TO 2L/NC PER RESPIRATORY THERAPY KIM MAYS SPNRCC
[2019-08-26] MEDS ORDERED: LAMISIL AT T (09:45)
[2019-08-26] MEDS ORDERED: PROPAFENONE HC150 MG PO (09:45)
--- NOTE | 2019-08-26 10:04 | NUR ---
PT UP IN CHAIR NO COMPLAINTS AT THIS TIME WILL CONTINUE TO MONITOR KIM CHOPRACC
[2019-08-26 11:53] VITALS: BP 130/71
--- NOTE | 2019-08-26 12:05 | NUR ---
PT ASSESSED FOR HOME O2: RESTING ON RA: SPO2 83% HR 67 RESTING ON 2 L NC: 93% HR 68 AMBULATING ON 2 L NC: SPO2 87% HR 82 AMBULATING ON 3 L NC: SPO2 87% HR 90 AMBULATING ON 4 L NC: SPO2 90-93% HR [address] WITH AMBULATION.
--- NOTE | 2019-08-26 12:30 | NUR ---
PT IN BED WITH LEGS UP. KIM MAYS SPNRCC
--- NOTE | 2019-08-26 13:31 | NUR ---
PT HAS RING WORM ON RIGHT WRIST WITH A FEW PINK PATCHES, RASH IS FADING AND HEALING WELL PER PT KIM MAYS SPNRCC
[2019-08-26] MEDS ORDERED: LASIX40 MG PO (14:47)
[2019-08-26] MEDS ORDERED: ZESTRIL20 MG PO (14:47)
[2019-08-26] MEDS ORDERED: GOOD SENSE400 MG/5 M PO (14:50)
[2019-08-26 16:00] VITALS: BP 156/87
--- NOTE | 2019-08-26 20:08 | NUR ---
PT REFUSING VITALS SHE STATES SHE IS DISCHARGED.
--- NOTE | 2019-08-26 20:13 | NUR ---
SAULO, REP FROM MEDICAL SERVICES, HERE TO DROP OFF O2 TANK. STATES HE WILL BE AT PT'S HOUSE TO SET UP OXYGEN CONCENTRATOR. SAULO EDUCATED PT ON USE OF O2 TANK. PT VERBALIZES UNDERSTANDING. PT'S DAUGHTER LEFT TO GET MEDICATIONS FROM PHARMACY. WILL RETURN SHORTLY.
--- NOTE | 2019-08-26 20:42 | NUR ---
PATIENT ESCORTED OFF FLOOR IN CARE OF RN AND PA TO MEET DAUGHTER AT MAIN ENTRY. O2 TANK WORKING PROPERLY AND SET TO 4L WHILE TRANSFERRING TO VEHICLE. ALL BELONGINGS GATHERED AND SENT WITH PT. IV SITES REMOVED AND WEBMASTER RETURNED TO YELLOW BIN AT NURSES STATION. PT IS ALERT & ORIENTED X3. NO S/S OF DITRESS NOTED. IN STABLE CONDITION. PT AND DAUGHTER EDUCATED ABOUT USE OF O2 @ 4L WHILE MOVING AND O2 @ 2L WHILE AT REST. BOTH VERBALIZE UNDERSTANDING. AWARE SAULO WILL BE AT PT'S HOUSE TO DROP OFF SUPPLIES & EDUCATE PT & FAMILY ABOUT EQUIPMENT.
== END 2019-08-26 20:45 | disposition home or self-care (01) | DRG 133 ==
LOC: 4E 15:43
PROVIDERS: Internal Medicine; Internal Medicine Nephrology; Student in an Organized Health Care Education/Training Program; ADMIT Internal Medicine
PROC: 5A09357 Assistance with Respiratory Ventilation, Less than 24 Consecutive Hours, Continuous Positive Airway Pressure (ICD-10-PCS; 2019-08-18)
PROC: 0DJD8ZZ Inspection of Lower Intestinal Tract, Via Natural or Artificial Opening Endoscopic (ICD-10-PCS; principal; 2019-08-21)
PROC: 0DB68ZX Excision of Stomach, Via Natural or Artificial Opening Endoscopic, Diagnostic (ICD-10-PCS; 2019-08-21)
PROC: 5A2204Z Restoration of Cardiac Rhythm, Single (ICD-10-PCS; 2019-08-25)
DX: J96.01 Acute respiratory failure with hypoxia (principal); J96.02 Acute respiratory failure with hypercapnia; I50.23 Acute on chronic systolic (congestive) heart failure; K57.90 Diverticulosis of intestine, part unspecified, without perforation or abscess without bleeding; I48.20 Chronic atrial fibrillation, unspecified; K29.70 Gastritis, unspecified, without bleeding; E87.2 Acidosis; J20.9 Acute bronchitis, unspecified; B35.4 Tinea corporis; D64.9 Anemia, unspecified; E66.01 Morbid (severe) obesity due to excess calories; D72.810 Lymphocytopenia; E88.89 Other specified metabolic disorders; I11.0 Hypertensive heart disease with heart failure; R19.5 Other fecal abnormalities; I50.30 Unspecified diastolic (congestive) heart failure; G40.909 Epilepsy, unspecified, not intractable, without status epilepticus; R74.8 Abnormal levels of other serum enzymes; R79.9 Abnormal finding of blood chemistry, unspecified; E11.65 Type 2 diabetes mellitus with hyperglycemia; E78.5 Hyperlipidemia, unspecified; J44.9 Chronic obstructive pulmonary disease, unspecified; I07.1 Rheumatic tricuspid insufficiency; I34.0 Nonrheumatic mitral (valve) insufficiency; S13.9XXA Sprain of joints and ligaments of unspecified parts of neck, initial encounter; X58.XXXA Exposure to other specified factors, initial encounter; S00.90XA Unspecified superficial injury of unspecified part of head, initial encounter; Y93.89 Activity, other specified; Y92.89 Other specified places as the place of occurrence of the external cause; Y99.8 Other external cause status; V89.2XXA Person injured in unspecified motor-vehicle accident, traffic, initial encounter; Z86.73 Personal history of transient ischemic attack (TIA), and cerebral infarction without residual deficits; Z79.899 Other long term (current) drug therapy; Z87.891 Personal history of nicotine dependence

== ENCOUNTER → 2019-09-21 | Outpatient (CLI) | payer OTHER ==
[~2019-09-21] MED LIST changes: +DILTIAZEM 24HR360 MG PO; +GOOD SENSE400 MG/5 M PO; +KENALOG 0.1%80 GM T; +KLOR-CON 1010 ME1 PO; +LAMISIL AT T; +LASIX40 MG PO; +LIPITOR10 MG PO; +PROPAFENONE HC150 MG PO; +VITAMIN D-32000 UNI1 PO
[2019-09-21 15:56] LABS: CREATININE 1.14 mg/dL (0.55-1.02); POTASSIUM 3.9 mmol/L (3.5-5.1)
== END | disposition home or self-care (01) ==
LOC: LAB 14:45
PROVIDERS: Internal Medicine Cardiovascular Disease
DX: I50.9 Heart failure, unspecified (principal)

== ENCOUNTER → 2019-10-05 | Day surgery (SDC) | payer OTHER ==
[~2019-10-05] VITALS: Ht 157.4 cm; Wt 123.4 kg
[~2019-10-05] MED LIST changes: +LISINOPRIL20 MG PO; +LOPRESSOR50 M1 PO; -LOPRESSOR50 MG PO; +PROPAFENONE HC225 MG PO
[2019-10-05 09:17] VITALS: BP 156/110
[2019-10-05 11:25] VITALS: BP 112/60
[2019-10-05 11:40] VITALS: BP 125/74
[2019-10-05 11:51] VITALS: BP 137/74
== END | disposition home or self-care (01) ==
LOC: SDC 10-01 08:00
DX: I48.19 Other persistent atrial fibrillation (principal); I11.0 Hypertensive heart disease with heart failure; I50.33 Acute on chronic diastolic (congestive) heart failure; J96.02 Acute respiratory failure with hypercapnia; J96.01 Acute respiratory failure with hypoxia; I67.1 Cerebral aneurysm, nonruptured; J20.9 Acute bronchitis, unspecified; D72.810 Lymphocytopenia; E66.01 Morbid (severe) obesity due to excess calories; Z68.42 Body mass index [BMI] 45.0-49.9, adult; Z98.890 Other specified postprocedural states; Z79.899 Other long term (current) drug therapy; Z82.49 Family history of ischemic heart disease and other diseases of the circulatory system

== ENCOUNTER 2019-10-12 12:18 | Inpatient (IN) | payer OTHER ==
[~2019-10-12] VITALS: Ht 157.4 cm; Wt 118.4 kg
[2019-10-12 12:52] LABS: BASO # 0.1 10*3/uL (0.0-0.1); BASO % 0.6 % (0.0-1.0); EOS # 0.1 10*3/uL (0.0-0.4); EOS % 1.6 % (1.0-4.0); HEMATOCRIT 42.5 % (37.0-47.0); HEMOGLOBIN 12.5 g/dl (12.0-16.0); LYMPH # 0.5 10*3/uL (1.3-4.4); LYMPH % 5.6 % (27.0-41.0); MEAN CELL VOLUME 94.4 fl (81.0-99.0); MEAN CORPUSCULAR HGB 27.8 pg (27.0-31.0); MEAN CORPUSCULAR HGB CONC 29.4 g/dl (33.0-37.0); MEAN PLATELET VOLUME 11.3 fl (9.6-12.3); MONO # 1.1 10*3/uL (0.1-1.0); MONO % 12.7 % (3.0-9.0); NEUT # 6.9 10*3/uL (2.3-7.9); NEUT % 78.9 % (47.0-73.0); PLATELET COUNT AUTOMATED 220 10*3/uL (130-400); RED CELL DISTRI WIDTH 23.9 % (0-14.5); WHITE BLOOD COUNT 8.8 10*3/uL (4.8-10.8)
[2019-10-12 13:08] LABS: ALKALINE PHOSPHATASE 119 U/L (45-117); BUN 24 mg/dl (7-24); CHLORIDE 109 mmol/L (98-107); POTASSIUM 3.9 mmol/L (3.5-5.1); SGOT/AST 22 IU/L (3-35); SGPT/ALT 38 U/L (12-78); SODIUM 146 mmol/L (136-145); TOTAL PROTEIN 6.3 gm/dL (6.4-8.2)
[2019-10-12 13:09] LABS: TROPONIN I < 0.015 ng/ml (<0.045)
[2019-10-12 13:35] VITALS: BP 160/101
[2019-10-12 14:05] VITALS: BP 139/84
[2019-10-12 15:20] VITALS: BP 135/82
--- NOTE | 2019-10-12 15:55 | NUR ---
[facility] TO HAVE MED LIST FAXED OVER
[2019-10-12 16:00] VITALS: BP 135/82
--- NOTE | 2019-10-12 16:00 | NUR ---
CALLED DR GRIMES RESIDENT TO TELL HIM OF NEW PT OF HIS BEING ADMITTED. HE STATES THAT THE PATIENT CAN STILL GET THE HOME DOES OF HER CARDIZEM. ONCE THE HOME MEDICATIONS ARE UP TO DATE HE STATES TO CALL HIM BACK
[2019-10-12] MEDS ORDERED: ALLOPURINOL100 MG PO (16:32)
[2019-10-12] MEDS ORDERED: OMEPRAZOLE40 MG PO (16:33)
[2019-10-12] MEDS ORDERED: VITAMIN E400 UNI2 PO (16:33)
[2019-10-12] MEDS ORDERED: SINGULAIR10 M1 PO (16:36)
--- NOTE | 2019-10-12 16:43 | NUR ---
TALKED TO DR GRIMES RESIDENT AND INFORMED HIM OF THE UPDATED MED LIST WHICH HE WILL LOOK AT. HE STATES IF THE HR IS GREATER THAN 120 CONSISTANTLY TO START THE CARDIZEM DRIP AT 5, AND IF SYSTOLIC BP <100 CALL CARDIOLOGY
--- NOTE | 2019-10-12 17:00 | NUR ---
SPOKE TO DR LEYVA RESIDENT AND HE SAID TO WATCH
--- NOTE | 2019-10-12 17:55 | NUR ---
IN TO PT ROOM AND SHE STATES THAT SHE IS HAVING NO PAIN AT THIS TIME, CALL LIGHT WITHIN REACH, WILL MONITOR THE PATIENT.
[2019-10-12 18:12] LABS: BILIRUBIN NEGATIVE (NEGATIVE); BLOOD NEGATIVE (NEGATIVE); CLARITY CLEAR (CLEAR); COLOR YELLOW (YELLOW); GLUCOSE NEGATIVE (NEGATIVE); KETONE NEGATIVE (NEGATIVE); LEUKO ESTERASE NEGATIVE (NEGATIVE); NITRITE NEGATIVE (NEGATIVE); PH 6.5 (5.0-9.0); UROBILINOGEN 0.2 E.U./dl (0.2-1.0)
[2019-10-12 18:22] LABS: WBC 0-2 wbc/hpf (0-5)
--- NOTE | 2019-10-12 18:25 | NUR ---
DR FISHER ON THE FLOOR AND IN THE PATIENT TO SEE HER FOR NEW CONSULT.
--- NOTE | 2019-10-12 19:00 | NUR ---
ASSUMED CARE FOR THIS PT AT THIS TIME. NO C/O VOICED OTHER THAN URINARY FREQUENCY D/T LASIX. CALL LIGHT IN REACH.
[2019-10-12 20:00] VITALS: BP 148/85
[2019-10-13] VITALS (11 sets, daily range): BP systolic 120–176; BP diastolic 65–99
--- NOTE | 2019-10-13 03:15 | NUR ---
24 HR chart check completed.
[2019-10-13 06:49] LABS: BASO % 0.4 % (0.0-1.0); EOS # 0.2 10*3/uL (0.0-0.4); EOS % 3.5 % (1.0-4.0); HEMATOCRIT 41.2 % (37.0-47.0); HEMOGLOBIN 11.9 g/dl (12.0-16.0); LYMPH # 0.6 10*3/uL (1.3-4.4); LYMPH % 8.2 % (27.0-41.0); MEAN CELL VOLUME 93.4 fl (81.0-99.0); MEAN CORPUSCULAR HGB CONC 28.9 g/dl (33.0-37.0); MEAN PLATELET VOLUME 11.7 fl (9.6-12.3); MONO # 0.9 10*3/uL (0.1-1.0); MONO % 13.4 % (3.0-9.0); NEUT # 5.1 10*3/uL (2.3-7.9); NEUT % 74.2 % (47.0-73.0); PLATELET COUNT AUTOMATED 215 10*3/uL (130-400); RED BLOOD COUNT 4.41 10*6/uL (4.10-5.10); RED CELL DISTRI WIDTH 23.5 % (0-14.5); WHITE BLOOD COUNT 6.9 10*3/uL (4.8-10.8)
[2019-10-13 07:08] LABS: ALBUMIN 2.9 gm/dl (3.1-4.5); BUN 19 mg/dl (7-24); CHLORIDE 108 mmol/L (98-107); POTASSIUM 3.8 mmol/L (3.5-5.1); SODIUM 148 mmol/L (136-145)
[2019-10-13 07:08] LABS: ACT PARTIAL THROMBO TIME 34.2 SECONDS (20.0-32.1); INTERNATIONAL NORM RATIO 1.1 (2.0-3.5)
[2019-10-13 07:15] LABS: VITAMIN D, 25-HYDROXY 36.7 ng/mL (30-100)
[2019-10-13 07:15] LABS: ALKALINE PHOSPHATASE 101 U/L (45-117); CHOLESTEROL 171 mg/dL (<200); CREATININE 0.78 mg/dL (0.55-1.02); FREE T4 1.12 ng/dl (0.76-1.46); HDL CHOLESTEROL 47 mg/dl (40-60); LDL CHOLESTEROL 103 mg/dL (9-159); PHOSPHOROUS 3.4 mg/dL (2.5-4.9); SGOT/AST 23 IU/L (3-35); SGPT/ALT 36 U/L (12-78); TOTAL PROTEIN 5.9 gm/dL (6.4-8.2); TRIGLYCERIDES 103 mg/dl (<150); VLDL CHOLESTEROL 21 mg/dL (6-40)
--- NOTE | 2019-10-13 07:58 | NUR ---
IN TO PT ROOM AT THIS TIME AND COMPLETED HER ASSESSMENT. CHECKED PT BLOOD PRESSURE AT THIS TIME AND IT WAS 154/92. SPOKE WITH PT ABOUT GIVING HER MEDICATIONS AT THIS TIME AND SHE AGREES. WILL CONTINUE TO MONITOR HER BP AND HR. SHE HAS NO COMPLAINTS AT THIS TIME AND IS GOING TO ORDER BREAKFAST. CALL LIGHT WITHIN REACH
--- NOTE | 2019-10-13 09:38 | NUR ---
ATTEMPTED TO DR HO TO INFROM HIM OF PT BP RECHECK AND NO ANSWER, WILL CALL BACK
--- NOTE | 2019-10-13 09:43 | NUR ---
DR HO CALLED AND UPDATED HIM ON PT HR. HE STATES THAT HE WILL BE IN TO ASSESS THE PT
--- NOTE | 2019-10-13 10:27 | NUR ---
DR HO ON FLOOR AND STATES TO START ON CARDIZEM DRIP AT 5. IS HE STAYS AROUND 90-100 CONSISTANTLY TO BUMP HER OFF. HE WANTS NOTIFIED OF BP AND HR Q2H
--- NOTE | 2019-10-13 10:30 | NUR ---
Area Operations Manager in to talk to patient. Patient states lives at home with her daughter, Roberta, and her grandson, Alexei. There are 4 steps in the home. Physician: Dr. Bal Bowens [facility] Home health services: none Patient's level of ADLs: INDEPENDENT Patient has working utilities: yes DME: O2 nc (unsure of liters), O2 supplier medical services Follow-up physician's appointment after d/c: she prefers to make her own follow up appt after discharge Does patient want to access PORTAL?: no Discharge plan discussed with patient. She lives at home with her family. She is independent in her ADLs and ambulation. Discussed home health care services and she denies any home needs at this time. When medically stable she will be discharged to home. Her daughter will provide transportation on discharge. JOB YA
--- NOTE | 2019-10-13 13:02 | NUR ---
CALLED DR HO TO INFORM HIM OF THE PT BLOOD PRESSURE AND HEART RATE WHILE BEING ON THE DRIP. HE STATES 'OK KEEP HER ON THE DRIP AT 5, AND WAIT TO SEE WHAT ESTHELAA WANTS DONE' I AM TO CALL HIM BACK IN 2 HOURS WITH UPDATE ON PT
--- NOTE | 2019-10-13 14:14 | NUR ---
DR HO CALLED TO QUESTION THAT THE PT ONLY HAD 800 URINE OUTPUT. THE PATIENT STATED THAT SHE WENT THE THE BATHROOM TWICE AND WHEN SHE WENT THE HAT FELL INTO THE TOILET SO IT WAS NOT ABLE TO BE COLLECTED. HE WOULD LIKE STRICT I&O'S ON THE PATIENT. LIZZ NOTIFIED WELL
--- NOTE | 2019-10-13 16:26 | NUR ---
CALLED DR HO TO INFORM HIM OF LATEST BP 140/65 AND HR 118, HE STATES 'OK
--- NOTE | 2019-10-13 18:15 | NUR ---
IV started left wrist with #22 angiocath after 0 attempts. The IV site was prepped with Chloraprep. Heparin lock attached. IV solution CARDIZEM infusing at 5 cc/hr. Sterile dressing applied. Patient tolerated precedure well. Procedure performed according to [facility] policy & procedure. JENNYFER REICH
[2019-10-14] VITALS (7 sets, daily range): BP systolic 113–152; BP diastolic 57–80
--- NOTE | 2019-10-14 06:14 | NUR ---
WARM COMPRESS PROVIDED TO PATIENT FOR IV INFILTRATION SITE ON RIGHT ARM. AREA WARM AND RED
[2019-10-14 06:20] LABS: BASO % 0.5 % (0.0-1.0); EOS # 0.3 10*3/uL (0.0-0.4); EOS % 3.5 % (1.0-4.0); HEMATOCRIT 44.9 % (37.0-47.0); HEMOGLOBIN 13.5 g/dl (12.0-16.0); LYMPH # 0.7 10*3/uL (1.3-4.4); LYMPH % 8.9 % (27.0-41.0); MEAN CELL VOLUME 90.9 fl (81.0-99.0); MEAN CORPUSCULAR HGB 27.3 pg (27.0-31.0); MEAN CORPUSCULAR HGB CONC 30.1 g/dl (33.0-37.0); MEAN PLATELET VOLUME 11.2 fl (9.6-12.3); MONO % 11.6 % (3.0-9.0); NEUT # 6.3 10*3/uL (2.3-7.9); NEUT % 75.3 % (47.0-73.0); PLATELET COUNT AUTOMATED 258 10*3/uL (130-400); RED BLOOD COUNT 4.94 10*6/uL (4.10-5.10); RED CELL DISTRI WIDTH 23.4 % (0-14.5); WHITE BLOOD COUNT 8.3 10*3/uL (4.8-10.8)
[2019-10-14 06:34] LABS: BUN 18 mg/dl (7-24); CHLORIDE 104 mmol/L (98-107); CREATININE 0.81 mg/dL (0.55-1.02); POTASSIUM 4.1 mmol/L (3.5-5.1); SODIUM 145 mmol/L (136-145)
--- NOTE | 2019-10-14 06:44 | NUR ---
ALEENA FROM LAB CALLED AND STATED SHE IS GENERATING A CORRECTIVE REPORT DUE TO BLOOD WORK BEING "A LITTLE BIT" HEMOLYZED
--- NOTE | 2019-10-14 09:00 | NUR ---
Clay Carman in to see patient. She is sitting up in her bedside chair eating breakfast without distress noted. No new needs or request at this time. She denies any home needs. When medically she will be discharged to home.
--- NOTE | 2019-10-14 20:00 | NUR ---
IN PT ROOM AT THIS TIME TO DO ASSESSMENT.PT IS IN HER CHAIR ON THE PHONE AT THIS TIME. PT DENIES ANY CHEST PAIN AND STATES THE ONLY COMPLAINT IS GOING TO THE BATHROOM SO OFTEN DUE TO LASIX BEING GIVEN. CALL LIGHT IS WITHIN REACH, WILL CONTINUE TO MONITOR
[2019-10-15] VITALS: BP 160/85
--- NOTE | 2019-10-15 03:29 | NUR ---
24 HR chart check completed.
[2019-10-15 06:11] LABS: BASO % 0.5 % (0.0-1.0); EOS # 0.3 10*3/uL (0.0-0.4); EOS % 4.7 % (1.0-4.0); HEMATOCRIT 42.2 % (37.0-47.0); HEMOGLOBIN 12.6 g/dl (12.0-16.0); LYMPH # 0.6 10*3/uL (1.3-4.4); LYMPH % 9.6 % (27.0-41.0); MEAN CELL VOLUME 91.3 fl (81.0-99.0); MEAN CORPUSCULAR HGB 27.3 pg (27.0-31.0); MEAN CORPUSCULAR HGB CONC 29.9 g/dl (33.0-37.0); MEAN PLATELET VOLUME 10.9 fl (9.6-12.3); MONO # 0.9 10*3/uL (0.1-1.0); NEUT # 4.4 10*3/uL (2.3-7.9); PLATELET COUNT AUTOMATED 227 10*3/uL (130-400); RED BLOOD COUNT 4.62 10*6/uL (4.10-5.10); WHITE BLOOD COUNT 6.1 10*3/uL (4.8-10.8)
[2019-10-15 06:31] LABS: BUN 16 mg/dl (7-24); CHLORIDE 105 mmol/L (98-107); CREATININE 0.72 mg/dL (0.55-1.02); POTASSIUM 3.3 mmol/L (3.5-5.1); SODIUM 145 mmol/L (136-145)
[2019-10-15 08:00] VITALS: BP 148/80
--- NOTE | 2019-10-15 09:00 | NUR ---
Customer Specialist in to see patient. She is sitting up in her bedside chair without distress noted. No new needs or request at this time. She denies any home needs. When medically she will be discharged to home.
--- NOTE | 2019-10-15 09:00 | NUR ---
DR. KONG AWARE PATIENT SEIZURE MED ON HOLD AND PATIENT DOESN'T FEEL RIGHT. SIZURE MED ORDERED WELL PO POTASSIUM.
--- NOTE | 2019-10-15 09:10 | NUR ---
DR. HO IN ROOM ASSESSING PATIENT. CARDIZEM GTT TO BE WEANED OFF.
--- NOTE | 2019-10-15 10:00 | NUR ---
CARDIZEM GTT IS OFF.
[2019-10-15 12:00] VITALS: BP 134/94
[2019-10-15 14:28] LABS: BUN 17 mg/dl (7-24); CHLORIDE 104 mmol/L (98-107); CREATININE 0.91 mg/dL (0.55-1.02); POTASSIUM 4.1 mmol/L (3.5-5.1); SODIUM 144 mmol/L (136-145)
[2019-10-15 16:00] VITALS: BP 148/95; BP 150/72
[2019-10-15 20:00] VITALS: BP 149/76
--- NOTE | 2019-10-15 21:00 | NUR ---
PATIENT UP TO BATHROOM, HEARTRATE UP TO 140S AFIB. PATIENT SOB, OXYGEN REAPPPLIED PATIENT HAS TAKEN OFF. PATIENT SAT DOWN AND IS NOW RESTING, HEARTRATE RETURNING TO NORMAL
[2019-10-16] VITALS: BP 136/74
--- NOTE | 2019-10-16 03:45 | NUR ---
Patient resting quietly with no c/o discomfort. Respirations easy and regular. Vital signs stable. No overt distress. HEARTRATE 90-100S AT REST VEGA TORRES
[2019-10-16 06:40] LABS: BASO % 0.5 % (0.0-1.0); EOS # 0.3 10*3/uL (0.0-0.4); EOS % 4.8 % (1.0-4.0); HEMATOCRIT 44.6 % (37.0-47.0); HEMOGLOBIN 13.1 g/dl (12.0-16.0); LYMPH # 0.6 10*3/uL (1.3-4.4); LYMPH % 9.9 % (27.0-41.0); MEAN CORPUSCULAR HGB CONC 29.4 g/dl (33.0-37.0); MEAN PLATELET VOLUME 10.7 fl (9.6-12.3); MONO # 0.8 10*3/uL (0.1-1.0); MONO % 14.3 % (3.0-9.0); PLATELET COUNT AUTOMATED 237 10*3/uL (130-400); RED BLOOD COUNT 4.85 10*6/uL (4.10-5.10); RED CELL DISTRI WIDTH 23.5 % (0-14.5); WHITE BLOOD COUNT 5.7 10*3/uL (4.8-10.8)
[2019-10-16 06:55] LABS: BUN 18 mg/dl (7-24); CHLORIDE 105 mmol/L (98-107); CREATININE 0.74 mg/dL (0.55-1.02); POTASSIUM 3.7 mmol/L (3.5-5.1); SODIUM 146 mmol/L (136-145)
--- NOTE | 2019-10-16 07:20 | NUR ---
ARRIVED ON SHIFT, INTRODUCED TO PATIENT, ASKED PATIENT IF OK FOR STUDENT NURSE, OK RECEIVED, WHITE BOARD UPDATED NO NEEDS VOICED AT THSI TIME.
[2019-10-16 08:00] VITALS: BP 150/80
--- NOTE | 2019-10-16 08:25 | NUR ---
PT SITTING IN BED, WATCHING TELEVISION, NO S/S OF DISCOMFORT, COOPERATIVE, CALL BUTON WITHIN REACH. SOHA GONZALEZ SPNRCC
--- NOTE | 2019-10-16 09:32 | NUR ---
RECEIVED CALL FROM TELEMETRY PATIENT HR, GOES UP TO 150, WHEN PATIENT CHECKED SHE WAS UP IN BATHROOM, SPOKE WITH DR. HO, HE REQUESTED I CALLED. PHILLIP FOR RECOMMENDATIONS.
--- NOTE | 2019-10-16 09:37 | NUR ---
CALL PLACED TO DR. FISHER ORDER RECEIVED FOR ADDITIONAL ONE TIME DOSE OF CARDIZEM 120, AND INCREASE 180, TO 240 DAILY, ADVISED DR. HO.
--- NOTE | 2019-10-16 10:03 | NUR ---
GIVEN ONE TIME DOSE OF CARDIZEM CD 120MG. FLOOR NURSE AWARE PT ALREADY RECEIVED 180MG. DOSE WILL INCREASE TO 240MG STARTING IN AM OF 10/17/19.
--- NOTE | 2019-10-16 10:15 | NUR ---
PT SITTING IN CHAIR, VISITING WITH FAMILY, NO S/S OF DISTRESS, NO COMPLAINTS AT THIS TIME, CALL BUTTON WITHIN REACH. SOHA GONZALEZ SPNRCC
--- NOTE | 2019-10-16 10:32 | NUR ---
Shift chart check completed.
[2019-10-16 12:24] VITALS: BP 130/80
--- NOTE | 2019-10-16 12:31 | NUR ---
ASSESSMENT COMPLETED, PT SITTING IN CHAIR, EATING LUNCH, NO S/S OF DISTRESS, CALL BUTTON WITHIN REACH, NO COMPLAINTS AT TIME. SOHA GONZALEZ SPNRCC
--- NOTE | 2019-10-16 13:29 | NUR ---
PT LAYING IN BED RESTING, NO COMPLAINTS AT THIS TIME, NO S/S OF DISTRESS, CALL BUTTON WITHIN REACH, REPORT GIVEN TO CHERYL. SOHA GONZALEZ SPNRCC
[2019-10-16 16:00] VITALS: BP 137/80
[2019-10-16 18:00] VITALS: BP 137/80
[2019-10-16 20:00] VITALS: BP 130/70
[2019-10-17] VITALS: BP 129/68
[2019-10-17 06:10] LABS: BUN 20 mg/dl (7-24); CHLORIDE 101 mmol/L (98-107); CREATININE 0.78 mg/dL (0.55-1.02); SODIUM 143 mmol/L (136-145)
[2019-10-17 06:11] LABS: POTASSIUM 3.5 mmol/L (3.5-5.1)
[2019-10-17 06:15] LABS: BASO % 0.5 % (0.0-1.0); EOS # 0.3 10*3/uL (0.0-0.4); EOS % 5.5 % (1.0-4.0); HEMATOCRIT 45.5 % (37.0-47.0); HEMOGLOBIN 13.3 g/dl (12.0-16.0); LYMPH # 0.8 10*3/uL (1.3-4.4); LYMPH % 13.4 % (27.0-41.0); MEAN CELL VOLUME 92.5 fl (81.0-99.0); MEAN CORPUSCULAR HGB CONC 29.2 g/dl (33.0-37.0); MEAN PLATELET VOLUME 11.1 fl (9.6-12.3); MONO # 0.9 10*3/uL (0.1-1.0); MONO % 15.5 % (3.0-9.0); NEUT # 3.9 10*3/uL (2.3-7.9); NEUT % 64.6 % (47.0-73.0); PLATELET COUNT AUTOMATED 237 10*3/uL (130-400); RED BLOOD COUNT 4.92 10*6/uL (4.10-5.10); RED CELL DISTRI WIDTH 22.9 % (0-14.5); WHITE BLOOD COUNT 6.1 10*3/uL (4.8-10.8)
[2019-10-17 08:00] VITALS: BP 132/78
[2019-10-17 16:00] VITALS: BP 139/76
[2019-10-17 20:00] VITALS: BP 140/94; BP 142/86
[2019-10-18] VITALS: BP 131/81
--- NOTE | 2019-10-18 01:50 | NUR ---
24 HR chart check completed.
--- NOTE | 2019-10-18 02:20 | NUR ---
PATIENT SLEEPING. SNORING RESPIRATIONS. NO DISTRESS NOTED. CALL LIGHT WITHIN REACH, WILL MONITOR
[2019-10-18 06:26] LABS: BUN 27 mg/dl (7-24); CHLORIDE 101 mmol/L (98-107); CREATININE 0.96 mg/dL (0.55-1.02); SODIUM 143 mmol/L (136-145)
[2019-10-18 06:27] LABS: POTASSIUM 3.9 mmol/L (3.5-5.1)
--- NOTE | 2019-10-18 07:40 | NUR ---
IN TO SEE PATIENT AT THIS TIME. NO NEW ORDERS.
[2019-10-18 08:00] VITALS: BP 149/73
[2019-10-18 12:00] VITALS: BP 130/80
[2019-10-18 16:00] VITALS: BP 123/65
--- NOTE | 2019-10-18 18:00 | NUR ---
PT RESTING IN BED AND DENIES NEEDS. CALL LIGHT WITHIN REACH.
--- NOTE | 2019-10-18 19:00 | NUR ---
ASSUMED CARE FOR THIS PT AT THIS TIME. PT RESTING QUIETLY IN BED WATCHING TV. DENIES ANY FURTHER C/O CHEST PAIN/PALPITATIONS. CALL LIGHT IN REACH.
[2019-10-18 20:00] VITALS: BP 116/58
[2019-10-19] VITALS: BP 148/74
--- NOTE | 2019-10-19 01:03 | NUR ---
24 HR chart check completed.
--- NOTE | 2019-10-19 05:33 | NUR ---
PT SAT 72% RA, O2 APPLIED AT 3LNC. SAT 90%. PT DENIES SOB, NO RESP DISTRESS NOTED.
[2019-10-19 06:35] LABS: BUN 25 mg/dl (7-24); CHLORIDE 101 mmol/L (98-107); POTASSIUM 3.8 mmol/L (3.5-5.1); SODIUM 141 mmol/L (136-145)
[2019-10-19 06:40] LABS: CREATININE 0.85 mg/dL (0.55-1.02)
[2019-10-19 08:00] VITALS: BP 143/83
--- NOTE | 2019-10-19 08:35 | NUR ---
PT UP AND MOVING FOR THE DAY, PT BATHED SELF, NO COMPLAINTS AT THIS TIME KIM MAYS SPNRCC
--- NOTE | 2019-10-19 09:00 | NUR ---
Donor Relations Officer in to see patient. She is ambulating in her room without difficulty. No new needs or request at this time. She denies any home needs. When medically stable she will be discharged to home.
--- NOTE | 2019-10-19 10:00 | NUR ---
PT UP IN CHAIR EATING BREAKFAST, NO COMPLAINTS AT THIS TIME, WILL CONTINUE TO MONITOR KIM CHOPRACC
--- NOTE | 2019-10-19 11:13 | NUR ---
ASSISTANT MAINTENANCE MANAGER JUST IN TO SEE PTLucinda MAYS SPNRCC
[2019-10-19 12:00] VITALS: BP 110/68
--- NOTE | 2019-10-19 12:00 | NUR ---
PT UP IN CHAIR WATCHING TV, NO COMPLAINTS KIM MAYS SPNRCC
[2019-10-19] MEDS ORDERED: CARDIZEM CD240 M1 PO (15:08)
[2019-10-19] MEDS ORDERED: K-TAB20 MEQ PO (15:08)
[2019-10-19] MEDS ORDERED: LASIX80 MG PO (15:08)
[2019-10-19] MEDS ORDERED: DIGITEK250 MCG PO (15:12)
--- NOTE | 2019-10-19 16:19 | NUR ---
Discharge instructions reviewed with patient/family. Patient receptive and verbalizes understanding. Follow-up care arranged. Written instructions given to patient/family. LIBERTAD MCMILLAN
== END 2019-10-19 16:19 | disposition home or self-care (01) | DRG 194 ==
LOC: ED 12:18 → 4E 12:48 → EDHOLD 12:48 → 4E 12:59
PROVIDERS: Emergency Medicine; Hospitalist; Internal Medicine Nephrology; ADMIT Internal Medicine
DX: I11.0 Hypertensive heart disease with heart failure (principal); I48.21 Permanent atrial fibrillation; E87.3 Alkalosis; E87.0 Hyperosmolality and hypernatremia; I50.9 Heart failure, unspecified; E87.8 Other disorders of electrolyte and fluid balance, not elsewhere classified; R73.9 Hyperglycemia, unspecified; E44.0 Moderate protein-calorie malnutrition; E87.6 Hypokalemia; E83.42 Hypomagnesemia; E66.01 Morbid (severe) obesity due to excess calories; Z79.01 Long term (current) use of anticoagulants; Z68.42 Body mass index [BMI] 45.0-49.9, adult

== ENCOUNTER → 2019-10-30 | Outpatient (CLI) | payer OTHER ==
[~2019-10-30] MED LIST changes: +ALLOPURINOL100 MG PO; +CARDIZEM CD240 M1 PO; +DIGITEK250 MCG PO; +K-TAB20 MEQ PO; +LASIX80 MG PO; +OMEPRAZOLE40 MG PO; +SINGULAIR10 M1 PO; +VITAMIN E400 UNI2 PO
[2019-10-30 11:01] LABS: BUN 22 mg/dl (7-24); CHLORIDE 105 mmol/L (98-107); CREATININE 0.97 mg/dL (0.55-1.02); POTASSIUM 3.9 mmol/L (3.5-5.1); SODIUM 144 mmol/L (136-145)
== END | disposition home or self-care (01) ==
LOC: LAB 10:07
PROVIDERS: Internal Medicine
DX: I10 Essential (primary) hypertension (principal); R60.9 Edema, unspecified; M10.9 Gout, unspecified

== ENCOUNTER → 2019-11-09 | Outpatient (CLI) | payer OTHER | END | disposition home or self-care (01) | LOC: LAB 14:33 | DX: I48.20 Chronic atrial fibrillation, unspecified (principal) ==

== ENCOUNTER → 2019-12-01 | Outpatient (CLI) | payer OTHER ==
[2019-12-01 12:22] LABS: DIGOXIN 1.47 ng/ml (0.8-2.0)
== END | disposition home or self-care (01) ==
LOC: LAB 10:47
PROVIDERS: Internal Medicine
DX: E55.9 Vitamin D deficiency, unspecified (principal)

== ENCOUNTER → 2020-04-12 | Outpatient (CLI) | payer OTHER | END | disposition home or self-care (01) | LOC: LAB 12:54 | DX: I48.20 Chronic atrial fibrillation, unspecified (principal) ==

== ENCOUNTER → 2020-07-04 | Outpatient (CLI) | payer OTHER ==
[2020-07-04 16:11] LABS: BUN 18 mg/dl (7-24); CHLORIDE 107 mmol/L (98-107); CREATININE 0.86 mg/dL (0.55-1.02); POTASSIUM 3.8 mmol/L (3.5-5.1); SODIUM 144 mmol/L (136-145)
[2020-07-04 16:21] LABS: DIGOXIN 1.16 ng/ml (0.8-2.0)
== END | disposition home or self-care (01) ==
LOC: LAB 15:07
PROVIDERS: ATTEND Internal Medicine Cardiovascular Disease
DX: I50.9 Heart failure, unspecified (principal)

== ENCOUNTER → 2020-08-17 | Outpatient (CLI) | payer OTHER | END | disposition home or self-care (01) | LOC: MAMMO 10:00 | PROVIDERS: ATTEND Internal Medicine | DX: Z12.31 Encounter for screening mammogram for malignant neoplasm of breast (principal) ==

== ENCOUNTER 2021-06-07 17:35 | Inpatient (IN) | payer OTHER ==
[~2021-06-07] VITALS: Ht 157.4 cm; Wt 109.9 kg
[2021-06-07 17:43] VITALS: BP 136/67
[2021-06-07 18:23] LABS: BASO % 0.2 % (0.0-1.0); HEMATOCRIT 42.5 % (37.0-47.0); LYMPH # 0.5 10*3/uL (1.3-4.4); LYMPH % 4.1 % (27.0-41.0); MEAN CELL VOLUME 91.4 fl (81.0-99.0); MEAN CORPUSCULAR HGB 27.3 pg (27.0-31.0); MEAN CORPUSCULAR HGB CONC 29.9 g/dl (33.0-37.0); MEAN PLATELET VOLUME 10.9 fl (9.6-12.3); MONO # 0.9 10*3/uL (0.1-1.0); MONO % 7.5 % (3.0-9.0); NEUT # 10.8 10*3/uL (2.3-7.9); NEUT % 87.6 % (47.0-73.0); PLATELET COUNT AUTOMATED 204 10*3/uL (130-400); RED BLOOD COUNT 4.65 10*6/uL (4.10-5.10); RED CELL DISTRI WIDTH 14.4 % (0-14.5); WHITE BLOOD COUNT 12.3 10*3/uL (4.8-10.8)
[2021-06-07 18:42] LABS: ALBUMIN 3.1 gm/dl (3.1-4.5); CREATININE 1.22 mg/dL (0.55-1.02); TOTAL PROTEIN 7.4 gm/dL (6.4-8.2)
[2021-06-07 18:43] LABS: TROPONIN I 0.02 ng/ml (<0.045)
[2021-06-07 18:54] LABS: DIGOXIN 1.34 ng/ml (0.8-2.0)
[2021-06-07 19:15] VITALS: BP 137/77
[2021-06-07 22:12] LABS: BILIRUBIN Negative (Negative); BLOOD Trace-Lysed (Negative); CLARITY Turbid (Clear); COLOR Dark Yellow (Yellow); GLUCOSE Negative (Negative); KETONE Negative (Negative); LEUKO ESTERASE 2+ (Negative); NITRITE Negative (Negative); SPECIFIC GRAVITY 1.025 (1.001-1.030)
[2021-06-07 22:29] LABS: BACTERIA 3+; EPITHELIAL CELLS TNTC; WBC 21-30 wbc/hpf (0-5)
[2021-06-08] VITALS (19 sets, daily range): BP systolic 87–150; BP diastolic 44–88
[2021-06-08 07:14] LABS: BASO % 0.2 % (0.0-1.0); HEMATOCRIT 39.8 % (37.0-47.0); LYMPH # 0.4 10*3/uL (1.3-4.4); LYMPH % 3.9 % (27.0-41.0); MEAN CELL VOLUME 91.7 fl (81.0-99.0); MEAN CORPUSCULAR HGB 27.2 pg (27.0-31.0); MEAN CORPUSCULAR HGB CONC 29.6 g/dl (33.0-37.0); MEAN PLATELET VOLUME 11.5 fl (9.6-12.3); MONO # 0.9 10*3/uL (0.1-1.0); MONO % 7.9 % (3.0-9.0); NEUT # 9.6 10*3/uL (2.3-7.9); NEUT % 87.5 % (47.0-73.0); PLATELET COUNT AUTOMATED 175 10*3/uL (130-400); RED BLOOD COUNT 4.34 10*6/uL (4.10-5.10); RED CELL DISTRI WIDTH 14.4 % (0-14.5)
[2021-06-08 07:49] LABS: ACT PARTIAL THROMBO TIME 31.6 SECONDS (20.0-32.1); INTERNATIONAL NORM RATIO 1.1 (2.0-3.5)
[2021-06-08 07:50] LABS: ALBUMIN 2.7 gm/dl (3.1-4.5); ALKALINE PHOSPHATASE 102 U/L (45-117); BUN 24 mg/dl (7-24); CHLORIDE 108 mmol/L (98-107); CHOLESTEROL 159 mg/dL (<200); CREATININE 0.99 mg/dL (0.55-1.02); LDL CHOLESTEROL 84 mg/dL (9-159); POTASSIUM 3.5 mmol/L (3.5-5.1); SGOT/AST 19 IU/L (3-35); SGPT/ALT 19 U/L (12-78); SODIUM 143 mmol/L (136-145); TOTAL PROTEIN 6.7 gm/dL (6.4-8.2); TRIGLYCERIDES 81 mg/dl (<150)
[2021-06-08 07:55] LABS: THYROID STIM HORMONE (HS) 0.896 uIU/ml (0.358-4.75)
[2021-06-08] MEDS ORDERED: DIGOX125 MCG PO (17:10)
[2021-06-08] MEDS ORDERED: XARE20MG PO (17:13)
[2021-06-09] VITALS: BP 105/53
[2021-06-09] MEDS ORDERED: FUROSEMIDE40 MG PO (00:59)
[2021-06-09 08:00] VITALS: BP 106/60
[2021-06-09 12:00] VITALS: BP 119/66
[2021-06-09 16:00] VITALS: BP 148/80
[2021-06-09 20:00] VITALS: BP 148/83
[2021-06-10] VITALS: BP 105/63
[2021-06-10 04:00] VITALS: BP 134/69
[2021-06-10 07:15] LABS: BASO % 0.2 % (0.0-1.0); EOS # 0.1 10*3/uL (0.0-0.4); EOS % 2.2 % (1.0-4.0); HEMATOCRIT 40.8 % (37.0-47.0); LYMPH # 0.4 10*3/uL (1.3-4.4); MEAN CELL VOLUME 94.2 fl (81.0-99.0); MEAN CORPUSCULAR HGB 26.8 pg (27.0-31.0); MEAN CORPUSCULAR HGB CONC 28.4 g/dl (33.0-37.0); MEAN PLATELET VOLUME 11.2 fl (9.6-12.3); MONO # 0.6 10*3/uL (0.1-1.0); NEUT # 5.2 10*3/uL (2.3-7.9); NEUT % 82.3 % (47.0-73.0); PLATELET COUNT AUTOMATED 178 10*3/uL (130-400); RED BLOOD COUNT 4.33 10*6/uL (4.10-5.10); RED CELL DISTRI WIDTH 14.4 % (0-14.5); WHITE BLOOD COUNT 6.3 10*3/uL (4.8-10.8)
[2021-06-10 07:25] LABS: BUN 26 mg/dl (7-24); CHLORIDE 110 mmol/L (98-107); CREATININE 0.74 mg/dL (0.55-1.02); POTASSIUM 3.9 mmol/L (3.5-5.1); SODIUM 145 mmol/L (136-145)
[2021-06-10 08:00] VITALS: BP 153/91
[2021-06-10 12:00] VITALS: BP 155/8
[2021-06-10 16:00] VITALS: BP 138/90
[2021-06-10 20:00] VITALS: BP 130/86; BP 132/95
[2021-06-11] VITALS (9 sets, daily range): BP systolic 99–141; BP diastolic 51–89
[2021-06-11 13:16] LABS: BASO % 0.2 % (0.0-1.0); EOS # 0.1 10*3/uL (0.0-0.4); EOS % 1.7 % (1.0-4.0); HEMATOCRIT 42.3 % (37.0-47.0); LYMPH # 0.3 10*3/uL (1.3-4.4); LYMPH % 3.9 % (27.0-41.0); MEAN CELL VOLUME 96.1 fl (81.0-99.0); MEAN CORPUSCULAR HGB CONC 28.1 g/dl (33.0-37.0); MEAN PLATELET VOLUME 10.8 fl (9.6-12.3); MONO # 0.3 10*3/uL (0.1-1.0); NEUT # 5.7 10*3/uL (2.3-7.9); NEUT % 88.7 % (47.0-73.0); PLATELET COUNT AUTOMATED 177 10*3/uL (130-400); RED CELL DISTRI WIDTH 14.1 % (0-14.5); WHITE BLOOD COUNT 6.4 10*3/uL (4.8-10.8)
[2021-06-11 13:26] LABS: BILIRUBIN 1+ (Negative); BLOOD 2+ (Negative); CLARITY Clear (Clear); COLOR Dark Yellow (Yellow); GLUCOSE Negative (Negative); KETONE Negative (Negative); LEUKO ESTERASE Negative (Negative); NITRITE Negative (Negative); PH 5.5 (4.5-8.0); SPECIFIC GRAVITY 1.025 (1.001-1.030)
[2021-06-11 13:32] LABS: ALBUMIN 2.4 gm/dl (3.1-4.5); ALKALINE PHOSPHATASE 102 U/L (45-117); BUN 25 mg/dl (7-24); CHLORIDE 108 mmol/L (98-107); CREATININE 0.84 mg/dL (0.55-1.02); POTASSIUM 4.2 mmol/L (3.5-5.1); SGOT/AST 62 IU/L (3-35); SGPT/ALT 51 U/L (12-78); SODIUM 143 mmol/L (136-145); TOTAL PROTEIN 6.6 gm/dL (6.4-8.2)
[2021-06-11 13:41] LABS: RBC 41-50 rbc/hpf (0-2)
[2021-06-11 13:42] LABS: PHENYTOIN (DILANTIN) 8.9 ug/ml (10-20)
[2021-06-11 13:42] LABS: WBC 0-2 wbc/hpf (0-5)
[2021-06-11 13:43] LABS: BACTERIA 2+
[2021-06-11 13:44] LABS: EPITHELIAL CELLS 0-2
[2021-06-11 15:27] LABS: ABG BASE EXCESS 10.2 mmol/L (-2.0-2.0); ARTERIAL BLOOD GAS PH 7.221 (7.35-7.45); ARTERIAL BLOOD GAS PO2 77.8 (80-90)
[2021-06-11 20:25] LABS: ABG BASE EXCESS 6.2 mmol/L (-2.0-2.0); ARTERIAL BLOOD GAS PH 7.299 (7.35-7.45)
[2021-06-12] VITALS (8 sets, daily range): BP systolic 100–127; BP diastolic 43–77
[2021-06-12 06:35] LABS: BASO % 0.3 % (0.0-1.0); EOS # 0.4 10*3/uL (0.0-0.4); EOS % 6.1 % (1.0-4.0); HEMATOCRIT 40.8 % (37.0-47.0); LYMPH # 0.4 10*3/uL (1.3-4.4); LYMPH % 7.3 % (27.0-41.0); MEAN CELL VOLUME 95.8 fl (81.0-99.0); MEAN CORPUSCULAR HGB 27.2 pg (27.0-31.0); MEAN CORPUSCULAR HGB CONC 28.4 g/dl (33.0-37.0); MEAN PLATELET VOLUME 11.2 fl (9.6-12.3); MONO # 0.5 10*3/uL (0.1-1.0); MONO % 7.9 % (3.0-9.0); NEUT # 4.5 10*3/uL (2.3-7.9); NEUT % 78.1 % (47.0-73.0); PLATELET COUNT AUTOMATED 184 10*3/uL (130-400); RED BLOOD COUNT 4.26 10*6/uL (4.10-5.10); RED CELL DISTRI WIDTH 14.2 % (0-14.5); WHITE BLOOD COUNT 5.7 10*3/uL (4.8-10.8)
[2021-06-12 06:40] LABS: ALBUMIN 2.3 gm/dl (3.1-4.5); ALKALINE PHOSPHATASE 96 U/L (45-117); BUN 33 mg/dl (7-24); CHLORIDE 109 mmol/L (98-107); CREATININE 0.83 mg/dL (0.55-1.02); POTASSIUM 4.3 mmol/L (3.5-5.1); SGOT/AST 39 IU/L (3-35); SGPT/ALT 47 U/L (12-78); SODIUM 147 mmol/L (136-145); TOTAL PROTEIN 6.2 gm/dL (6.4-8.2)
[2021-06-12 06:50] LABS: DIGOXIN 1.46 ng/ml (0.8-2.0)
[2021-06-12 07:35] LABS: ABG BASE EXCESS 4.5 mmol/L (-2.0-2.0); ARTERIAL BLOOD GAS PH 7.342 (7.35-7.45); ARTERIAL BLOOD GAS PO2 116.7 (80-90)
[2021-06-13] VITALS: BP 110/54
[2021-06-13 04:00] VITALS: BP 118/48
[2021-06-13 07:53] LABS: ABG BASE EXCESS 9.4 mmol/L (-2.0-2.0); ARTERIAL BLOOD GAS PH 7.34 (7.35-7.45); ARTERIAL BLOOD GAS PO2 70.2 (80-90)
[2021-06-13 08:00] VITALS: BP 135/74
[2021-06-13 09:55] LABS: BASO % 0.2 % (0.0-1.0); EOS # 0.4 10*3/uL (0.0-0.4); EOS % 8.4 % (1.0-4.0); HEMATOCRIT 41.4 % (37.0-47.0); LYMPH # 0.5 10*3/uL (1.3-4.4); LYMPH % 9.8 % (27.0-41.0); MEAN CELL VOLUME 95.6 fl (81.0-99.0); MEAN CORPUSCULAR HGB 26.6 pg (27.0-31.0); MEAN CORPUSCULAR HGB CONC 27.8 g/dl (33.0-37.0); MONO # 0.5 10*3/uL (0.1-1.0); MONO % 9.8 % (3.0-9.0); NEUT # 3.5 10*3/uL (2.3-7.9); NEUT % 71.2 % (47.0-73.0); PLATELET COUNT AUTOMATED 208 10*3/uL (130-400); RED BLOOD COUNT 4.33 10*6/uL (4.10-5.10); WHITE BLOOD COUNT 4.9 10*3/uL (4.8-10.8)
[2021-06-13 10:01] LABS: ALBUMIN 2.3 gm/dl (3.1-4.5); BUN 35 mg/dl (7-24); CHLORIDE 111 mmol/L (98-107); CREATININE 0.88 mg/dL (0.55-1.02); POTASSIUM 4.7 mmol/L (3.5-5.1); SGOT/AST 47 IU/L (3-35); SGPT/ALT 41 U/L (12-78); SODIUM 146 mmol/L (136-145); TOTAL PROTEIN 6.7 gm/dL (6.4-8.2)
[2021-06-13 10:05] LABS: ALKALINE PHOSPHATASE 98 U/L (45-117)
[2021-06-13 12:00] VITALS: BP 135/68
[2021-06-13 16:00] VITALS: BP 129/60
[2021-06-13 20:00] VITALS: BP 121/61
[2021-06-14] VITALS: BP 125/51
[2021-06-14 04:00] VITALS: BP 117/60
[2021-06-14 07:50] LABS: ABG BASE EXCESS 9.1 mmol/L (-2.0-2.0); ARTERIAL BLOOD GAS PH 7.332 (7.35-7.45)
[2021-06-14 07:52] LABS: ARTERIAL BLOOD GAS PO2 28.3 (80-90)
[2021-06-14 08:00] VITALS: BP 147/62
[2021-06-14 08:55] LABS: ABG BASE EXCESS 10.8 mmol/L (-2.0-2.0); ARTERIAL BLOOD GAS PH 7.379 (7.35-7.45); ARTERIAL BLOOD GAS PO2 62.3 (80-90)
[2021-06-14 11:08] LABS: ALBUMIN 2.4 gm/dl (3.1-4.5); ALKALINE PHOSPHATASE 109 U/L (45-117); BUN 30 mg/dl (7-24); CHLORIDE 107 mmol/L (98-107); CREATININE 0.85 mg/dL (0.55-1.02); POTASSIUM 4.5 mmol/L (3.5-5.1); SGOT/AST 40 IU/L (3-35); SGPT/ALT 40 U/L (12-78); SODIUM 143 mmol/L (136-145); TOTAL PROTEIN 6.9 gm/dL (6.4-8.2)
[2021-06-14 11:21] LABS: BASO % 0.4 % (0.0-1.0); EOS # 0.4 10*3/uL (0.0-0.4); EOS % 8.2 % (1.0-4.0); HEMATOCRIT 40.7 % (37.0-47.0); LYMPH # 0.6 10*3/uL (1.3-4.4); LYMPH % 12.1 % (27.0-41.0); MEAN CELL VOLUME 95.5 fl (81.0-99.0); MEAN CORPUSCULAR HGB 27.2 pg (27.0-31.0); MEAN CORPUSCULAR HGB CONC 28.5 g/dl (33.0-37.0); MEAN PLATELET VOLUME 11.4 fl (9.6-12.3); MONO # 0.4 10*3/uL (0.1-1.0); MONO % 8.6 % (3.0-9.0); NEUT # 3.4 10*3/uL (2.3-7.9); NEUT % 69.9 % (47.0-73.0); PLATELET COUNT AUTOMATED 216 10*3/uL (130-400); RED BLOOD COUNT 4.26 10*6/uL (4.10-5.10); RED CELL DISTRI WIDTH 14.4 % (0-14.5); WHITE BLOOD COUNT 4.9 10*3/uL (4.8-10.8)
[2021-06-14 12:00] VITALS: BP 139/82
[2021-06-14 16:00] VITALS: BP 119/71
[2021-06-14 20:00] VITALS: BP 144/83
[2021-06-15] VITALS: BP 154/96
[2021-06-15 08:00] VITALS: BP 136/62
[2021-06-15 08:11] LABS: ABG BASE EXCESS 9.7 mmol/L (-2.0-2.0); ARTERIAL BLOOD GAS PH 7.426 (7.35-7.45); ARTERIAL BLOOD GAS PO2 81.5 (80-90)
[2021-06-15 12:00] VITALS: BP 125/80
[2021-06-15 16:00] VITALS: BP 151/79
[2021-06-15 20:00] VITALS: BP 160/88
[2021-06-16] VITALS: BP 127/95
[2021-06-16 07:11] LABS: ALBUMIN 2.6 gm/dl (3.1-4.5); ALKALINE PHOSPHATASE 111 U/L (45-117); BUN 24 mg/dl (7-24); CHLORIDE 101 mmol/L (98-107); CREATININE 0.88 mg/dL (0.55-1.02); SGOT/AST 52 IU/L (3-35); SGPT/ALT 52 U/L (12-78); SODIUM 143 mmol/L (136-145); TOTAL PROTEIN 6.9 gm/dL (6.4-8.2)
[2021-06-16 07:15] LABS: HEMATOCRIT 41.6 % (37.0-47.0); MEAN CORPUSCULAR HGB 26.5 pg (27.0-31.0); MEAN CORPUSCULAR HGB CONC 28.8 g/dl (33.0-37.0); MEAN PLATELET VOLUME 11.2 fl (9.6-12.3); RED BLOOD COUNT 4.52 10*6/uL (4.10-5.10); RED CELL DISTRI WIDTH 14.2 % (0-14.5); WHITE BLOOD COUNT 5.1 10*3/uL (4.8-10.8)
[2021-06-16 07:32] LABS: PLATELET COUNT AUTOMATED 283 10*3/uL (130-400)
[2021-06-16 08:00] VITALS: BP 150/98
[2021-06-16 08:10] LABS: ABG BASE EXCESS 12.8 mmol/L (-2.0-2.0); ARTERIAL BLOOD GAS PH 7.416 (7.35-7.45); ARTERIAL BLOOD GAS PO2 91.6 (80-90)
[2021-06-16 09:46] LABS: ATYPICAL LYMPHS 1 % (0-0); PLATELET SUFFICIENCY NORMAL (NORMAL); TOTAL CELLS COUNTED 100 #CELLS
[2021-06-16 12:00] VITALS: BP 145/78
[2021-06-16 16:00] VITALS: BP 111/87
[2021-06-16] MEDS ORDERED: DILANTIN100 MG PO (16:33)
[2021-06-16] MEDS ORDERED: KEPPRA500 MG PO (16:33)
== END 2021-06-16 19:23 | DRG 871 ==
LOC: ED 17:35 → EDHOLD 23:27 → 4E 23:27 → EDHOLD 06-08 07:34 → 4E 06-08 20:35 → ICCU 06-11 07:17 → 4E 06-14 22:33
PROVIDERS: Emergency Medicine; Hospitalist; Internal Medicine Critical Care Medicine; Podiatrist; Student in an Organized Health Care Education/Training Program; ADMIT Internal Medicine; ATTEND Internal Medicine
PROC: 5A09357 Assistance with Respiratory Ventilation, Less than 24 Consecutive Hours, Continuous Positive Airway Pressure (ICD-10-PCS; principal; 2021-06-11)
PROC: 02HV33Z Insertion of Infusion Device into Superior Vena Cava, Percutaneous Approach (ICD-10-PCS; 2021-06-11)
PROC: B548ZZA Ultrasonography of Superior Vena Cava, Guidance (ICD-10-PCS; 2021-06-11)
PROC: 5A09357 Assistance with Respiratory Ventilation, Less than 24 Consecutive Hours, Continuous Positive Airway Pressure (ICD-10-PCS; 2021-06-12)
PROC: 5A09357 Assistance with Respiratory Ventilation, Less than 24 Consecutive Hours, Continuous Positive Airway Pressure (ICD-10-PCS; 2021-06-14)
PROC: 5A09357 Assistance with Respiratory Ventilation, Less than 24 Consecutive Hours, Continuous Positive Airway Pressure (ICD-10-PCS; 2021-06-15)
PROC: 5A09357 Assistance with Respiratory Ventilation, Less than 24 Consecutive Hours, Continuous Positive Airway Pressure (ICD-10-PCS; 2021-06-15)
PROC: 0HBRXZZ Excision of Toe Nail, External Approach (ICD-10-PCS; 2021-06-15)
PROC: 0HBRXZZ Excision of Toe Nail, External Approach (ICD-10-PCS; 2021-06-15)
PROC: 0HBRXZZ Excision of Toe Nail, External Approach (ICD-10-PCS; 2021-06-15)
PROC: 0HBRXZZ Excision of Toe Nail, External Approach (ICD-10-PCS; 2021-06-15)
PROC: 0HBRXZZ Excision of Toe Nail, External Approach (ICD-10-PCS; 2021-06-15)
PROC: 0HBRXZZ Excision of Toe Nail, External Approach (ICD-10-PCS; 2021-06-15)
PROC: 0HBRXZZ Excision of Toe Nail, External Approach (ICD-10-PCS; 2021-06-15)
PROC: 0HBRXZZ Excision of Toe Nail, External Approach (ICD-10-PCS; 2021-06-15)
PROC: 0HBRXZZ Excision of Toe Nail, External Approach (ICD-10-PCS; 2021-06-15)
PROC: 0HBRXZZ Excision of Toe Nail, External Approach (ICD-10-PCS; 2021-06-15)
DX: A41.9 Sepsis, unspecified organism (principal); N17.0 Acute kidney failure with tubular necrosis; G93.41 Metabolic encephalopathy; J69.0 Pneumonitis due to inhalation of food and vomit; J96.00 Acute respiratory failure, unspecified whether with hypoxia or hypercapnia; N30.00 Acute cystitis without hematuria; I48.11 Longstanding persistent atrial fibrillation; I50.32 Chronic diastolic (congestive) heart failure; J98.11 Atelectasis; E66.2 Morbid (severe) obesity with alveolar hypoventilation; E87.3 Alkalosis; I13.0 Hypertensive heart and chronic kidney disease with heart failure and stage 1 through stage 4 chronic kidney disease, or unspecified chronic kidney disease; Z68.42 Body mass index [BMI] 45.0-49.9, adult; Z20.822 Contact with and (suspected) exposure to COVID-19; R73.9 Hyperglycemia, unspecified; B35.1 Tinea unguium; G31.84 Mild cognitive impairment of uncertain or unknown etiology; F39 Unspecified mood [affective] disorder; G40.909 Epilepsy, unspecified, not intractable, without status epilepticus; K59.00 Constipation, unspecified; N18.9 Chronic kidney disease, unspecified; Z79.01 Long term (current) use of anticoagulants

== ENCOUNTER → 2021-12-07 | Outpatient (CLI) | payer OTHER ==
[~2021-12-07] MED LIST changes: +DIGOX125 MCG PO; +DILANTIN100 MG PO; +FUROSEMIDE40 MG PO; +KEPPRA250 MG PO; +KEPPRA500 MG PO; +XARE20MG PO
== END | disposition home or self-care (01) ==
LOC: MAMMO 02:25
PROVIDERS: ATTEND Internal Medicine
DX: Z12.31 Encounter for screening mammogram for malignant neoplasm of breast (principal); N64.89 Other specified disorders of breast

== ENCOUNTER → 2022-02-26 | Outpatient (CLI) | payer OTHER | END | disposition home or self-care (01) | LOC: RAD 04:11 | PROVIDERS: ATTEND Internal Medicine Critical Care Medicine | DX: R05.3 Chronic cough (principal); J96.12 Chronic respiratory failure with hypercapnia; J96.11 Chronic respiratory failure with hypoxia; E66.2 Morbid (severe) obesity with alveolar hypoventilation; Z23 Encounter for immunization; Z68.42 Body mass index [BMI] 45.0-49.9, adult ==

== ENCOUNTER 2023-03-10 21:42 | Emergency (ER) | payer OTHER, MEDICAID ==
[~2023-03-10] VITALS: Wt 116.6 kg
[~2023-03-10 21:42] MED LIST changes: +GENTAMICIN100 MG/10 IV; +LOSARTAN POTAS100 M1 PO; +PRAVASTATIN SOD40 MG PO; +TERBINAFINE250 MG PO
[2023-03-10] MEDS ORDERED: FUROSEMIDE40 MG PO (21:57)
[2023-03-10] MEDS ORDERED: OMEPRAZOLE10 MG PO (22:12)
[2023-03-10] MEDS ORDERED: OXCARBAZEPINE600 MG PO (22:13)
[2023-03-10] MEDS ORDERED: AVPAK EXTENDED100 M1 PO (22:14)
[2023-03-10] MEDS ORDERED: POTASSIUM CHLO10 ME4 PO (22:15)
[2023-03-10] MEDS ORDERED: PRAVASTATIN SOD40 MG PO (22:16)
[2023-03-10] MEDS ORDERED: SENNA8.6 MG PO (22:17)
[2023-03-10] MEDS ORDERED: TERBINAFINE250 MG PO (22:18)
[2023-03-10] MEDS ORDERED: XARE20MG PO (22:19)
== END 2023-03-10 23:56 | disposition home or self-care (01) ==
LOC: ED 21:42
DX: S10.93XA Contusion of unspecified part of neck, initial encounter (principal); S00.93XA Contusion of unspecified part of head, initial encounter; I10 Essential (primary) hypertension; I25.10 Atherosclerotic heart disease of native coronary artery without angina pectoris; D64.9 Anemia, unspecified; I48.91 Unspecified atrial fibrillation; Z98.890 Other specified postprocedural states; W01.0XXA Fall on same level from slipping, tripping and stumbling without subsequent striking against object, initial encounter; Y93.89 Activity, other specified; Y92.129 Unspecified place in nursing home as the place of occurrence of the external cause; Y99.8 Other external cause status

== ENCOUNTER 2023-04-11 21:51 | Emergency (ER) | payer OTHER, MEDICAID ==
[~2023-04-11] VITALS: Ht 167.6 cm; Wt 98.0 kg
[~2023-04-11 21:51] MED LIST changes: +AVPAK EXTENDED100 M1 PO; +OMEPRAZOLE10 MG PO; +OXCARBAZEPINE600 MG PO; +POTASSIUM CHLO10 ME4 PO; +SENNA8.6 MG PO
== END 2023-04-11 22:45 | disposition home or self-care (01) ==
LOC: ED 21:51
DX: R03.0 Elevated blood-pressure reading, without diagnosis of hypertension (principal); I48.91 Unspecified atrial fibrillation; R73.9 Hyperglycemia, unspecified; E87.8 Other disorders of electrolyte and fluid balance, not elsewhere classified; E87.1 Hypo-osmolality and hyponatremia; D64.9 Anemia, unspecified; I11.0 Hypertensive heart disease with heart failure; I50.9 Heart failure, unspecified; Z98.890 Other specified postprocedural states

== ENCOUNTER → 2023-04-17 | Outpatient (CLI) | payer OTHER, MEDICAID | END | disposition home or self-care (01) | LOC: CT 01:32 | PROVIDERS: ATTEND Neurological Surgery | DX: Z98.2 Presence of cerebrospinal fluid drainage device (principal); Z95.828 Presence of other vascular implants and grafts; I10 Essential (primary) hypertension ==

== ENCOUNTER → 2023-05-13 | Outpatient (CLI) | payer OTHER, MEDICAID | END | disposition home or self-care (01) | LOC: MAMMO 04-24 10:30 | PROVIDERS: ATTEND Internal Medicine | DX: Z12.31 Encounter for screening mammogram for malignant neoplasm of breast (principal) ==

== ENCOUNTER → 2023-11-01 | Outpatient (CLI) | payer MEDICARE, MEDICAID | END | disposition home or self-care (01) | LOC: US 08:43 | PROVIDERS: ATTEND Internal Medicine | DX: N28.1 Cyst of kidney, acquired (principal); K85.90 Acute pancreatitis without necrosis or infection, unspecified; K86.2 Cyst of pancreas ==

== ENCOUNTER 2024-02-26 10:35 | Emergency (ER) | payer MEDICARE, OTHER ==
[~2024-02-26] VITALS: Ht 157.4 cm; Wt 99.8 kg
[2024-02-26] MEDS ORDERED: AMLODIPINE BESY10 MG PO (11:12)
[2024-02-26] MEDS ORDERED: B-12 DOTS500 MCG PO (11:13)
[2024-02-26] MEDS ORDERED: ACULAR 3ML 3 ML5 ML OPH (11:14)
[2024-02-26] MEDS ORDERED: MAXITROL OPHTHAL5 ML OPH (11:14)
[2024-02-26] MEDS ORDERED: TIADYLT ER240 MG PO (11:15)
[2024-02-26] MEDS ORDERED: VITAMIN D350 MCG PO (11:17)
[2024-02-26] MEDS ORDERED: VITAMIN E400 UNIT PO (11:17)
== END 2024-02-26 14:23 | disposition home or self-care (01) ==
LOC: ED 10:35
DX: R42 Dizziness and giddiness (principal); I11.0 Hypertensive heart disease with heart failure; I50.9 Heart failure, unspecified; D64.9 Anemia, unspecified; I48.91 Unspecified atrial fibrillation; Z98.890 Other specified postprocedural states; Z90.49 Acquired absence of other specified parts of digestive tract

== ENCOUNTER 2024-05-29 11:05 | Emergency (ER) | payer MEDICARE, OTHER ==
[~2024-05-29] VITALS: Ht 157.4 cm; Wt 113.4 kg
[~2024-05-29 11:05] MED LIST changes: +ACULAR 3ML 3 ML5 ML OPH; +AMLODIPINE BESY10 MG PO; +B-12 DOTS500 MCG PO; +MAXITROL OPHTHAL5 ML OPH; +TIADYLT ER240 MG PO; +VITAMIN D350 MCG PO; +VITAMIN E400 UNIT PO
== END 2024-05-29 14:22 | disposition home or self-care (01) ==
LOC: ED 11:05
DX: S50.02XA Contusion of left elbow, initial encounter (principal); S70.01XA Contusion of right hip, initial encounter; S09.8XXA Other specified injuries of head, initial encounter; I11.0 Hypertensive heart disease with heart failure; I50.9 Heart failure, unspecified; D64.9 Anemia, unspecified; I48.91 Unspecified atrial fibrillation; Z98.890 Other specified postprocedural states; W01.0XXA Fall on same level from slipping, tripping and stumbling without subsequent striking against object, initial encounter; Y93.89 Activity, other specified; Y92.238 Other place in hospital as the place of occurrence of the external cause; Y99.8 Other external cause status

== ENCOUNTER → 2024-07-16 | Outpatient (CLI) | payer MEDICARE, OTHER | END | disposition home or self-care (01) | LOC: MAMMO 10:25 | PROVIDERS: ATTEND Internal Medicine | DX: Z12.31 Encounter for screening mammogram for malignant neoplasm of breast (principal) ==